=== PATIENT | female | born 1990 | race Caucasian/White ===

== ENCOUNTER → 2018-05-09 13:16 | Outpatient (CLI) | payer SELFPAY ==
[2018-05-09 15:04] LABS: Glucose Challenge Gest 1H 50g 81 mg/dL (70-140)
[2018-05-09 21:28] LABS: Chlamydia Trachomatis by PCR Negative (Negative); Neisserai gonorrhoeae by PCR Negative (Negative); Probe Check PASS; Sample Adequacy Control PASS; Specimen Processing Control PASS
== END ==
PROVIDERS: Visit Provider Obstetrics & Gynecology
DX: Z34.90 Encounter for supervision of normal pregnancy, unspecified, unspecified trimester (principal)
CPT/HCPCS: 36415; 82950; 87086; 87491; 87591

== ENCOUNTER → 2018-06-06 11:31 | Outpatient (CLI) | payer SELFPAY ==
[2018-06-06 12:32] LABS: Absolute Lymphocyte Count 2.22 X10^3/ul (0.83-4.51); Absolute Neutrophil Count 4.6 X10^3/uL (2.0-7.7); Basophil# 0.01 X10^3/uL; Basophil% 0.1 % (0-1); Eosinophil# 0.11 X10^3/uL; Eosinophils% 1.5 % (0-5); Hematocrit 39.6 % (37-47); Hemoglobin 13.3 g/dl (12.0-15.0); Lymphocyte # 2.22 X10^3/ul (4.0); Lymphocyte % 30.4 % (19-41); Mean Corp Hgb Conc 33.6 g/gl (32-36); Mean Corpuscular Volume 92.3 fL (81-99); Mean Platelet Vol. 10.6 fl (6.2-12.0); Monocyte# 0.39 X10^3/uL; Monocyte% 5.3 % (0-10); Neutrophil # 4.57 X10^3/uL (2.7-7.7); Neutrophil % 62.7 % (47-70); Platelet Count 232 K/mm3 (150-450); RBC Distribution Width CV 12.7 % (11.6-14.6); RBC Distribution Width SD 42.9 fl (35.1-43.9); Red Blood Count 4.29 M/mm3 (4.2-5.4); White Blood Count 7.3 K/mm3 (4.4-11.0)
[2018-06-06 12:35] LABS: POSITIVE COUNT NO; POSITIVE DIFFERENTIAL NO; POSITIVE MORPHOLOGY NO
[2018-06-06 13:33] LABS: HIV - WCH Non-Reactive (Nonreactive); Rubella IgG 8.5 IU/mL
[2018-06-07 09:36] LABS: HEPATITIS B SURFACE AG Negative (Negative)
[2018-06-10 01:16] LABS: Rapid Plasmin Reagin (RPR) NONREACTIVE (NONREACTIVE)
== END ==
PROVIDERS: Obstetrics & Gynecology; Visit Provider Family Medicine Geriatric Medicine
DX: Z34.90 Encounter for supervision of normal pregnancy, unspecified, unspecified trimester (principal)
CPT/HCPCS: 85025; 86592; 86703; 86762; 86850; 86900; 87340

== ENCOUNTER → 2018-07-05 11:05 | Outpatient (CLI) | payer SELFPAY | PROVIDERS: Visit Provider Nurse Practitioner Women's Health | DX: Z36.9 Encounter for antenatal screening, unspecified (principal) | CPT/HCPCS: 36415 ==

== ENCOUNTER → 2018-10-12 11:24 | Outpatient (CLI) | payer SELFPAY ==
[2018-10-12 11:19] VITALS: BMI 45.7
[2018-10-12 12:10] LABS: Glucose Challenge Gest 1H 50g 129 mg/dL (70-140)
[2018-10-12 12:12] LABS: Absolute Lymphocyte Count 1.96 X10^3/ul (0.83-4.51); Absolute Neutrophil Count 5.1 X10^3/uL (2.0-7.7); Basophil# 0.02 X10^3/uL; Basophil% 0.3 % (0-1); Eosinophil# 0.04 X10^3/uL; Eosinophils% 0.5 % (0-5); Hematocrit 36.4 % (37-47); Hemoglobin 12.4 g/dl (12.0-15.0); Lymphocyte # 1.96 X10^3/ul (4.0); Lymphocyte % 26.2 % (19-41); Mean Corp Hgb Conc 34.1 g/gl (32-36); Mean Corpuscular Hgb 31.9 pg (27.0-32.0); Mean Corpuscular Volume 93.6 fL (81-99); Mean Platelet Vol. 10.4 fl (6.2-12.0); Monocyte# 0.32 X10^3/uL; Monocyte% 4.3 % (0-10); Neutrophil # 5.13 X10^3/uL (2.7-7.7); Neutrophil % 68.4 % (47-70); Platelet Count 215 K/mm3 (150-450); RBC Distribution Width CV 12.5 % (11.6-14.6); RBC Distribution Width SD 41.9 fl (35.1-43.9); Red Blood Count 3.89 M/mm3 (4.2-5.4); White Blood Count 7.5 K/mm3 (4.4-11.0)
[2018-10-12 12:16] LABS: POSITIVE COUNT NO; POSITIVE DIFFERENTIAL NO; POSITIVE MORPHOLOGY NO
== END ==
PROVIDERS: Referring Provider Obstetrics & Gynecology; Visit Provider Obstetrics & Gynecology
DX: O09.90 Supervision of high risk pregnancy, unspecified, unspecified trimester (principal); Z3A.00 Weeks of gestation of pregnancy not specified
CPT/HCPCS: 36415; 82950; 85025

== ENCOUNTER → 2018-11-09 12:26 | Outpatient (CLI) | payer SELFPAY ==
[2018-10-26 11:16] VITALS: BMI 47.4
[2018-11-09 10:44] VITALS: BMI 47.7
--- NOTE | 2018-11-09 12:28 | US_ITS ---
STUDY: SECOND AND THIRD TRIMESTER OBSTETRICAL ULTRASOUND - LIMITED REASON FOR EXAM: Female, 28 years old. Routine survey. LMP: March 25, 2018. PRIOR ULTRASOUND: None. TECHNIQUE: Transabdominal TECHNICAL QUALITY: Adequate. FINDINGS: There is a single intrauterine fetus. The fetus is in a cephalic presentation. There is demonstrated cardiac activity with a heart rate of 129 bpm. There is a normal amniotic fluid volume. The largest amniotic fluid pocket measures 5.1 cm x 5.6 cm. The amniotic fluid index (IKER) is 16.7 cm. The placenta is anterior in location and is not low lying. There are Grade 1 placental changes. The cervix measures 5.6 cm in length. BIOMETRY: BPD: 8.27 cm: 33 weeks, 2 days HC: 31.09 cm: 34 weeks, 6 days AC: 29.5 cm: 33 weeks, 4 days FL: 6.26 cm: 32 weeks, 3 days Age by LMP: 32 weeks, 5 days. JOSHUA by LMP: December 30, 2018. age by current US: 33 weeks, 4 days. JOSHUA by current US: December 24, 2018. Estimated weight: 2170 grams, +/- 317 grams, 60 percentile. Gender: Indeterminant US/OB Limited With Biometrics IMPRESSION: Single live uterine gestation with a mean gestational age of 33 weeks and 4 days. Electronically Signed: Ronni Kendrick, at 12:58 EST , Service support ,
== END ==
PROVIDERS: Referring Provider Obstetrics & Gynecology; Visit Provider Obstetrics & Gynecology
DX: O09.90 Supervision of high risk pregnancy, unspecified, unspecified trimester (principal); Z3A.00 Weeks of gestation of pregnancy not specified
CPT/HCPCS: 76816

== ENCOUNTER → 2018-12-07 12:22 | Outpatient (CLI) | payer SELFPAY ==
[2018-10-26 11:16] VITALS: BMI 47.4
[2018-12-07 10:32] VITALS: BMI 47.7
--- NOTE | 2018-12-07 12:28 | US_ITS ---
STUDY: SECOND AND THIRD TRIMESTER OBSTETRICAL ULTRASOUND - LIMITED REASON FOR EXAM: Female, 28 years old. Routine survey. LMP: March 25, 2018. PRIOR ULTRASOUND: Comparison is made with prior study dated November 09, 2018. TECHNIQUE: Transabdominal TECHNICAL QUALITY: Adequate. FINDINGS: There is a single intrauterine fetus. The fetus is in a breech presentation. There is demonstrated cardiac activity with a heart rate of 135 bpm. There is a normal amniotic fluid volume. The largest amniotic fluid pocket measures 6.2 cm. The amniotic fluid index (IKER) is 15.5 cm. The placenta is anterior in location and is not low lying. There are Grade 2 placental changes. The cervix measures 3.5 cm in length. BIOMETRY: BPD: 9.5 cm: 38 weeks, 6 days HC: 33.64 cm: 38 weeks, 4 days AC: 33.59 cm: 37 weeks, 4 days FL: 7.05 cm: 36 weeks, 1 days Age by LMP: 37 weeks, 5 days. JOSHUA by LMP: December 30, 2018. age by prior US: 37 weeks, 4 days. JOSHUA by prior US: December 24, 2018. age by current US: 37 weeks, 6 days. JOSHUA by current US: December 22, 2018. Estimated weight: 3209 grams, +/- 469 grams, 74 percentile. Gender: Indeterminant US/OB Limited With Biometrics IMPRESSION: Single live intrauterine gestation with a mean gestational age of 37 weeks and 4 days. The measurements obtained today fall within the normal expected range. Electronically Signed: Ronni Kendrick, at 8:56 EDT , Service support ,
== END ==
PROVIDERS: Referring Provider Obstetrics & Gynecology; Visit Provider Obstetrics & Gynecology
DX: Z34.93 Encounter for supervision of normal pregnancy, unspecified, third trimester (principal)
CPT/HCPCS: 76816; 87081

== ENCOUNTER 2018-12-16 07:05 | Outpatient (CLI) | payer SELFPAY ==
[2018-12-07 10:32] VITALS: BMI 47.7
--- NOTE | 2018-12-16 07:31 | OB.TRI.NOTE ---
- Problem List (1) Breech presentation Status: Acute (2) Rubella non-immune status, antepartum Status: Acute Comment: avoidance and vaccination (3) History of delivery Status: Acute Comment: desires TOLAC (4) BMI greater than 40 Status: Acute Comment: 1 tm glucola nsts and growth us after 32 weeks, Serial growth US every 4 weeks after 32. (5) Supervision of high-risk Status: Acute Qualifiers: Comment: PRR JOSHUA 12/30/17 gender surprise PC Viktoriya Luis (6) Status: Acute Qualifiers: Comment: genetic screening declined, declined carrier and afp screening. Anatomy US right choroid plexus cyst. FU Anatomy US normal. History of Present Illness Date of Service: 12/16/18 Was patient seen by the physician?: Yes Reason For Visit: VERSION Final JOSHUA Source: US <20 weeks History of Present Illness: patient presents at 37 weeks breech presentation desires version. she dneies any vb lof admits good fm and denies any regular ctx Allergies amoxicillin Allergy (Verified 12/07/18 10:32) Unknown - Pertinent Past Medical History Surgical History: Past Surgical History (Last Reviewed 12/07/18 @ 10:32 by Ashley Restrepo) delivery delivered Review of Systems Constitutional: Denies: Fever, Malaise Gastrointestinal: Denies: Abdominal Pain, Diarrhea, Nausea, Vomiting Physical Exam General: Alert, Cooperative, No apparent distress HEENT: Atraumatic, Normocephalic. Negative for: Thyromegaly, Lymphadenopathy Cardiovascular: Regular rate Lungs: Normal air movement Abdomen: Soft, Non Tender, Gravid Neurological: Deep Tendon Reflexes 2+/4 and Symmetrical, Neuro grossly intact. Negative for: Clonus DINING MANAGER: Normal external genitalia. Negative for: Vulvar lesions Estimated gestational size: Appropriate for gestational size Presentation: Breech NST - FHR Rate Baby A Baseline: 130 Variability:: Moderate Accelerations:: 15 x 15 Decelerations:: None NST Reactive:: Yes FHR Category:: Category I Uterine Activity:: no regular Impression/Plan 28 yo with breech presentation presents for ECV plan IV, NST, terb and attempt for ECV.
--- NOTE | 2018-12-16 07:33 | PCM.OPRPT ---
Problem List (1) Breech presentation Status: Acute (2) Rubella non-immune status, antepartum Status: Acute Comment: avoidance and vaccination (3) History of delivery Status: Acute Comment: desires TOLAC (4) BMI greater than 40 Status: Acute Comment: 1 tm glucola nsts and growth us after 32 weeks, Serial growth US every 4 weeks after 32. (5) Supervision of high-risk Status: Acute Qualifiers: Comment: PRR JOSHUA 12/30/17 gender surprise PC Viktoriya Luis (6) Status: Acute Qualifiers: Comment: genetic screening declined, declined carrier and afp screening. Anatomy US right choroid plexus cyst. FU Anatomy US normal. Report of Operation Date of Procedure: 12/16/18 Pre-Operative Diagnosis: breech Surgery/Procedure Performed:: external cephalic version
[2018-12-16] MEDS: Terbutaline 1 MG/ML Vial 0.25 MG SC (07:49)
[2018-12-16] MEDS: Lactated Ringers 1,000 ML 125 ML IV (07:52)
[2018-12-16 08:22] VITALS: BMI 48.5
== END 2018-12-16 09:25 | disposition home or self-care (01) ==
LOC: WPOUT 07:10 → WP 07:10
PROVIDERS: Referring Provider Obstetrics & Gynecology; Visit Provider Obstetrics & Gynecology
DX: O32.1XX0 Maternal care for breech presentation, not applicable or unspecified (principal); O34.219 Maternal care for unspecified type scar from previous cesarean delivery; Z3A.37 37 weeks gestation of pregnancy
CPT/HCPCS: 36415; 59025; 59050; 76815; 96372; 99218; J7120; G0378

== ENCOUNTER 2019-01-05 05:30 | Inpatient (IN) | payer SELFPAY ==
[2019-01-03 10:27] VITALS: BMI 48.5
[2019-01-05] VITALS (15 sets, daily range): BP systolic 98–137; BP diastolic 32–79; PULSE 66–105; RESP 14–18; TEMP 36.4–37.2; O2SAT 94–98; BMI 49.7
[2019-01-05] MEDS: Lactated Ringers 1,000 ML 999 ML IV (05:50)
[2019-01-05 06:26] LABS: Absolute Lymphocyte Count 2.76 X10^3/ul (0.83-4.51); Absolute Neutrophil Count 5.6 X10^3/uL (2.0-7.7); Basophil# 0.02 X10^3/uL; Basophil% 0.2 % (0-1); Eosinophil# 0.07 X10^3/uL; Eosinophils% 0.8 % (0-5); Hematocrit 37.9 % (37-47); Lymphocyte # 2.76 X10^3/ul (4.0); Lymphocyte % 30.5 % (19-41); Mean Corp Hgb Conc 34.3 g/gl (32-36); Mean Corpuscular Hgb 31.3 pg (27.0-32.0); Mean Corpuscular Volume 91.1 fL (81-99); Mean Platelet Vol. 11.1 fl (6.2-12.0); Monocyte# 0.61 X10^3/uL; Monocyte% 6.7 % (0-10); Neutrophil # 5.55 X10^3/uL (2.7-7.7); Neutrophil % 61.5 % (47-70); Platelet Count 215 K/mm3 (150-450); RBC Distribution Width CV 13.3 % (11.6-14.6); RBC Distribution Width SD 44.1 fl (35.1-43.9); Red Blood Count 4.16 M/mm3 (4.2-5.4)
[2019-01-05 06:27] LABS: POSITIVE COUNT NO; POSITIVE DIFFERENTIAL NO; POSITIVE MORPHOLOGY NO
[2019-01-05] MEDS: Sodium Citrate/Citric Acid 30 ML UDC PO ×2 (07:11→13:41)
[2019-01-05] MEDS: Lactated Ringers 1,000 ML 150 ML IV ×2 (07:11→23:44)
--- NOTE | 2019-01-05 08:17 | PCM.HPOB.BLA ---
- Problem List (1) BMI greater than 40 Status: Acute Comment: 1 tm glucola nsts and growth us after 32 weeks, Serial growth US every 4 weeks after 32. (2) History of delivery Status: Acute Comment: desires TOLAC 53% success (3) Status: Acute Qualifiers: Comment: genetic screening declined, declined carrier and afp screening. Anatomy US right choroid plexus cyst. FU Anatomy US normal. (4) Rubella non-immune status, antepartum Status: Acute Comment: avoidance and vaccination (5) Supervision of high-risk Status: Acute Qualifiers: Comment: PRR JOSHUA 12/30/17 gender surprise PC Vikotriya Alexi History and Physical Date of Admission: 01/05/19 Intake Vital Signs 01/03/19 Body Mass Index (BMI) 48.5 01/03/19 Height 5 ft 5 in 01/03/19 Weight: 297 lb 01/03/19 Body Mass Index (BMI) 49.4 01/03/19 Blood Pressure 120/74 12/28/18 Body Mass Index (BMI) 48.5 Intake Visit Reasons: 40 WEEK OB/NST Chief Complaint: est ob/nst Site Safety Coordinator Required: No Is patient in pain?: No Allergies amoxicillin Allergy (Verified 01/03/19 10:27) Unknown Medications Vits [Prenatabs FA] 1 tab PO DAILY 10/13/16 [History Confirmed 01/03/19] Last Menstral Period: 03/13/18 Zika: Zika virus screening: Negative : No PFSH PFSH Surgical History delivery delivered (Acute) Social History Smoking Status: Former smoker alcohol intake: never substance use type: does not use caffeine: Yes what type of physical activity do you participate in: walking seatbelt use: always do you feel safe at home: Yes additional social history: 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 Date Name GA/Weeks Outcome Route Bth Weight Infant Gen Labor Lgth Anesthesia Del Locatn Provider FOB Unknown 2016 Viktoriya 41 live - full term 7 pounds 1 oz Female [facility] Delivery Date: On 05/09/18 @ 12:27 Anna Mendenhall 41 week IOL NRFHTS HPI 40 WEEK OB/NST: Details: NOLAN GONZALEZ is a 29 year old who presents for routine OB visit. OB Visit JOSHUA Calculator Estimated Delivery Date 12/30/18 Based on Ultrasound Date 05/09/18 Current WG 40w 4d Number 1 Expected Delivery Route/Plan desires TOLAC uptodate education given, 54.5% likelihood of success. consent signed Specific Issue/Plans flu vaccine: declines tdap vaccine: given rhogam: na LARC form signed: declines labor support person: Alexi pain management: epidural cut cord/dad catch: yes : yes PP control planned: discussed possible routes of delivery and associated risks: plan TOLAC signed consent special requests: [] Initial Weight: 265 lb Date EGA Weight BP Urine Prot Glucose FHR FuHt Pres Mov CTX Dilation Effaced St Visit Note 05/09/18 6w 3d 266 lb (+16 oz) 06/06/18 10w 3d 266 lb 8 oz (+1 lb 8 oz) 114/70 Negative Negative 155 no vb, had some crmaping but better now 07/05/18 14w 4d 272 lb (+7 lb) 120/72 155 Doing well. No VB, LOF 07/29/18 18w 0d 275 lb (+10 lb) 100/70 Negative Negative 151 Absent Doing well. No VB, LOF. Has felt couple of flutters 08/25/18 21w 6d 281 lb 8 oz (+16 lb 8 oz) 122/82 Negative Negative 150 Active no vb lof cramping 09/22/18 25w 6d 282 lb (+17 lb) 130/78 Negative Negative 150 Active no vb lof good fm no regular ctx 10/12/18 28w 5d 284 lb 2 oz (+19 lb 2 oz) 124/70 Negative Negative 150 30 Active no vb lof good fm no regular ctx. discussed weight gain and activity, support given. 10/26/18 30w 5d 285 lb (+20 lb) 108/72 Negative Negative 150 33 Active absent no vb lof good fm no regular ctx 11/09/18 32w 5d 287 lb (+22 lb) 116/60 Negative Negative 150 34 Active absent no vb lof good fm no regular ctx 11/16/18 33w 5d 288 lb 4 oz (+23 lb 4 oz) 118/58 Negative Negative 150 36 Active absent no vb lof good fm no regular ctx 11/23/18 34w 5d 290 lb (+25 lb) 120/62 Negative Negative 140 Active absent no vb lof good fm nor egualr ctx 11/29/18 35w 4d 292 lb 6 oz (+27 lb 6 oz) 102/68 Negative Negative 130 absent no vb lof good fm n oregular ctx 12/07/18 36w 5d 293 lb 6 oz (+28 lb 6 oz) 120/72 Negative Negative 145 38 Active absent 0 No VB, LOF, CTX. Good FM. NST 12/21/18 38w 5d 296 lb (+31 lb) 130/74 130 40 Active absent 0.5 no vb lof good fm n oregular ctx discussed cs at 41 weeks if no active labor prior 12/28/18 39w 5d 297 lb 6 oz (+32 lb 6 oz) 122/80 Negative Negative 130 41 Active absent 0.5 no vb lof good fm no regular ctx 01/03/19 40w 4d 297 lb (+32 lb) 120/74 Negative Negative 130 41 Cephalic Active absent no vb lof good fm n oregular ctx Visit Notes Visit Date: 01/03/19 ??no vb lof good fm n oregular ctx ??Anna Mendenhall MD on 01/03/19 Visit Date: 12/28/18 ??no vb lof good fm no regular ctx ??Anna Mendenhall MD on 01/03/19 Visit Date: 12/21/18 ??no vb lof good fm n oregular ctx discussed cs at 41 weeks if no active labor prior ??Anna Mendenhall MD on 12/23/18 Visit Date: 12/07/18 ??No VB, LOF, CTX. Good FM. NST ??RUPALI Garnica on 12/07/18 Visit Date: 11/29/18 ??no vb lof good fm n oregular ctx ??Anna Mendenhall MD on 11/29/18 Visit Date: 11/23/18 ??no vb lof good fm nor egualr ctx ??Anna Mendenhall MD on 11/23/18 Visit Date: 11/16/18 ??no vb lof good fm no regular ctx ??Anna Mendenhall MD on 11/20/18 Visit Date: 11/09/18 ??no vb lof good fm no regular ctx ??Anna Mendenhall MD on 11/09/18 Visit Date: 10/26/18 ??no vb lof good fm no regular ctx ??Anna Mendenhall MD on 10/26/18 Visit Date: 10/12/18 ??no vb lof good fm no regular ctx. discussed weight gain and activity, support given. ??Anna Mendenhall MD on 10/12/18 Visit Date: 09/22/18 ??no vb lof good fm no regular ctx ??Anna Mendenhall MD on 09/22/18 Visit Date: 08/25/18 ??no vb lof cramping ??Anna Mendenhall MD on 08/25/18 Visit Date: 07/29/18 ??Doing well. No VB, LOF. Has felt couple of flutters ??Michelle Buckner NP-C on 07/29/18 Visit Date: 07/05/18 ??Doing well. No VB, LOF ??ALEX GarnicaC on 07/05/18 Visit Date: 06/06/18 ??no vb, had some crmaping but better now ??Anan Mendenhall MD on 06/06/18 Visit Date: 05/09/18 ??No visit notes to display ACOG First Trimester First Trimester: Desire for , Alcohol, Tobacco Cessation, Illicit/Recreational Drug/Substance Use, Intimate Partner Violence, Barriers to care, Unstable Housing, Communication Barriers, Environmental/Work Hazards, Anticipated Course of Care, Toxoplasmosis Precations, Use of Any medications, Sexual activity, Exercise, Dental Care, Sauna/Hot tub use, Seat Belt use, Childbirth classes/Hospital facilities, , Travel, Indications for US and Screening for Aneuploidy Diagnostics Diagnostics Labs Hct 36.4 % (37-47) L 10/12/18 Hgb 12.4 g/dl (12.0-15.0) 10/12/18 Obstetrics Ultrasound 12/07/18 Glucose 1 Hr 50 gm 129 mg/dL (70-140) 10/12/18 Details: HIV: Urine Culture: Sequential Screen: NIPT Screen: Office Procedures OB NST Non-Stress Test Indications for Monitoring: Yes BMI >40 Heart Rate Baseline: 130 Heart Rate Variability: moderate Movement: Present Heart Rate Accelerations: Present Decelerations: Absent Contractions: Absent Impression: Yes Reactive Non-Stress Test Category 1 Results [id number] Office Urine Glucose Negative Last Edit by Ashley Restrepo on 01/03/19 10:34 Office Urine Protein Negative Last Edit by Ashley Restrepo on 01/03/19 10:34 Assessment & Plan Problems 1. Rubella non-immune status, antepartum O99.89; Z28.3 2. History of delivery Z98.891 3. BMI greater than 40 4. Supervision of high risk in third trimester O09.93 5. 40 weeks gestation of Z3A.40 Plan movement and labor precautions reviewed. ACOG trimester education reviewed and updated. see problem list details for updated plan management information and see below for orders placed at this visit. GA appropriate handout given. Orders Orders: POC Urinalysis 2 Dip (Clinic) Today OB NST Today Z68.42 Coding Level of Care Code OB Routine Diagnoses Rubella non-immune status, antepartum O99.89; Z28.3 History of delivery Z98.891 BMI greater than 40 Supervision of high risk in third trimester O09.93 ??Trimester: third trimester 40 weeks gestation of Z3A.40 ??Weeks of gestation: 40 weeks Additional Codes Non-Stress Test (90697)
--- NOTE | 2019-01-05 12:39 | NURSING ---
Pt updated on csection time and plans. pt and remain in room resting. no further needs voiced.
[2019-01-05] MEDS: Oxytocin 30 units/NS 500 ml 30 UNITS/500 ML IV.SOLN 167 UNITS IV (14:40)
[2019-01-05] MEDS: Ketorolac 30 MG/ML Syringe IV ×2 (15:02→21:37)
[2019-01-05] MEDS: Lactated Ringers 1,000 ML 100 ML IV ×2 (15:24→17:21)
[2019-01-05] MEDS: Methylergonovine 0.2 MG/ML Ampul IM (15:47)
--- NOTE | 2019-01-05 16:06 | OP.PCM_ITS ---
Problem List (1) BMI greater than 40 Status: Acute Comment: 1 tm glucola nsts and growth us after 32 weeks, Serial growth US every 4 weeks after 32. (2) History of delivery Status: Acute Comment: desires TOLAC 53% success (3) Status: Acute Qualifiers: Comment: genetic screening declined, declined carrier and afp screening. Anatomy US right choroid plexus cyst. FU Anatomy US normal. (4) Rubella non-immune status, antepartum Status: Acute Comment: avoidance and vaccination (5) Supervision of high-risk Status: Acute Qualifiers: Comment: PRR JOSHUA 12/30/17 gender surprise PC Viktoriya Luis Delivery Classification: Scheduled Final JOSHUA: 12/30/18 Gestational age: 40 Weeks and 6 Days Indications for : Repeat Elective Description of Procedure: The patient is a 29-year-old G2, P1 at 40 weeks 6 days presented for repeat C- section. Spinal anesthesia was placed without difficulty. Nayak catheter was placed. The patient was placed in the dorsal supine position with leftward tilt. Patient was prepped and draped in the normal sterile fashion. Pfannenstiel skin incision was made with the scalpel and carried through to the underlying layer of fascia with the scalpel. Fascia was nicked in the midline and the incision extended laterally. The rectus bellies were dissected off superiorly and inferiorly with out complication both sharply and bluntly. The peritoneum was entered digitally. The incision was stretched and a low transverse uterine incision was made with the scalpel. The infant's head was delivered atraumatically followed by the anterior and posterior shoulders witho ut complication the rest of the delivered. The cord was clamped and cut and the was handed off to awaiting nurse. The placenta was delivered spontaneously immediately following and was noted to be intact and have a three- vessel cord. The uterus was exteriorized cleared of all clots and debris, and the incision was closed in a double layer closure using #1 Monocryl. The uterus was returned to the maternal abdomen and gutters were cleared of all clots and debris. The ovaries and fallopian tubes were noted to be within normal limits. The peritoneum was closed with 3-0 Monocryl in a running fashion. Fascia was closed with 0 PDS in a running fashion. Subcutaneous tissue was copiously irrigated and the skin was closed with 3-0 Monocryl in a subcuticular fashion. Steri-Strips and Mepilex dressing were applied without complication. Patient was taken to recovery in stable condition. Amniotic Membrane Rupture Type: Artificial Amniotic Fluid Description: Clear Placenta Disposition: [facility] Drain: Nayak to straight drain Fluids Replaced: Crystalloid Cord Entanglement: None Esitmated Blood Loss (ml): 800 Gender: Female Delayed cord clamping: Yes Pre-op Antibiotic Given: - - Ancef 3 g Pt instructed on risks of surgery: Bleeding, Anesthesia Risks, Infection Complications: None - Admit VTE Documentation VTE Present on Admission: No VTE Mechan Device Prophylaxis: SCD's
[2019-01-05] MEDS: Ondansetron 4 MG/2 ML Vial IV ×2 (17:18→21:37)
--- NOTE | 2019-01-05 18:25 | NURSING ---
1730 gave bedside report to Iliana Leary RN. informed her of moderate sized clot during early recovery and that methergine IM was given at 1547. also discussed borderline urine output and to monitor closely. 100 cc in catheter at recovery, clear and yellow. aware of the need to empty morales catheter at the end of recovery and document a tele strip in pt chart. tele strip printed by this RN at initial recovery start time showed NSR. no further needs. continue to monitor per RN who received report.
[2019-01-05] MEDS: 0.9% Saline Lock 10 ML Syringe IV (21:37)
[2019-01-05] MEDS: Enoxaparin 40 MG/0.4 ML Syringe SC (22:02)
[2019-01-06] VITALS (15 sets, daily range): BP systolic 98–112; BP diastolic 43–61; PULSE 67–85; RESP 14–18; TEMP 36.6–37; O2SAT 91–100
[2019-01-06] MEDS: Ketorolac 30 MG/ML Syringe IV ×4 (03:10→21:14)
[2019-01-06] MEDS: 0.9% Saline Lock 10 ML Syringe IV ×3 (03:12→21:14)
--- NOTE | 2019-01-06 04:20 | NURSING ---
Pt. called RN to room for machine beeping, RN saw that pt.'s SPO2 was at 89%. Pt. almost asleep when machine went off. Vital signs and respirations within normal limits. Physician called for an order for 2L of oxygen nasal cannula. Oxygen applied to pt. and SPO2 went up to 97-98% and stabilized. Pt. denies history of sleep apnea but states she has been told she snores in her sleep.
[2019-01-06 07:00] LABS: Hematocrit 33.3 % (37-47); Hemoglobin 11.1 g/dl (12.0-15.0); Mean Corp Hgb Conc 33.3 g/gl (32-36); Mean Corpuscular Hgb 31.1 pg (27.0-32.0); Mean Corpuscular Volume 93.3 fL (81-99); Mean Platelet Vol. 11.3 fl (6.2-12.0); Platelet Count 180 K/mm3 (150-450); RBC Distribution Width CV 13.4 % (11.6-14.6); RBC Distribution Width SD 44.2 fl (35.1-43.9); Red Blood Count 3.57 M/mm3 (4.2-5.4); White Blood Count 8.8 K/mm3 (4.4-11.0)
[2019-01-06 07:05] LABS: Scan Indicated on CBC? Y/N NO
--- NOTE | 2019-01-06 08:08 | PCM.PN.OB ---
Subjective: doing well no complaints pain controlled no CP SOB N V ambulating well tolerating po lochia moderate, going well - Physical Exam General: Alert, Oriented x3 Abdomen: Soft, Non-Distended, - - FF below U, dressing dry and intact Vital Signs Temp Pulse Resp BP Pulse Ox 98.3 F 71 16 106/43 L 100 01/06/19 03:38 01/06/19 07:30 01/06/19 07:30 01/06/19 03:38 01/06/19 07:30 Oxygen Flow Rate (L/min) 2 Oxygen Delivery Method Room Air Weight: 299 lb Body Mass Index (BMI) 49.7 Intake and Output for Last 24 Hours 01/04/19 01/05/19 01/06/19 23:59 23:59 23:59 Intake Total 3548.2 / 3548.2 2968 / 2968 Output Total 1100 / 1100 1850 / 1850 Balance 2448.2 / 2448.2 1118 / 1118 Laboratory Tests Past 24 Hrs 01/06/19 06:30 WBC 8.8 RBC 3.57 L Hgb 11.1 L Hct 33.3 L MCV 93.3 MCH 31.1 MCHC 33.3 RDW 13.4 RDW Differential 44.2 H Plt Count 180 MPV 11.3 Medical Necessity - Tobacco Use Smoking Status: Never smoker Assessment/Plan All Active Problems (Last Reviewed 01/03/19 @ 10:27 by Ashley Restrepo) Rubella non-immune status, antepartum (Acute) History of delivery (Acute) BMI greater than 40 (Acute) Supervision of high-risk (Acute) (Acute) Breech presentation (Resolved) s/p LTCS PPD # 1 1. routine post care 2. breast feeding- support given 3. rh positive 4. rubella nonimmune
[2019-01-06] MEDS: Lactated Ringers 1,000 ML 100 ML IV (08:38)
[2019-01-06] MEDS: Enoxaparin 40 MG/0.4 ML Syringe SC ×2 (09:24→22:53)
[2019-01-06] MEDS: Acetaminophen 500 MG Tablet 1000 MG PO (20:40)
[2019-01-06] MEDS: Senna/Docusate Sodium 1 Tablet PO (20:40)
[2019-01-07 02:51] VITALS: BP 104/54; PULSE 78; RESP 16; TEMP 36.7; O2SAT 95
[2019-01-07] MEDS: Ketorolac 30 MG/ML Syringe IV ×2 (02:52→10:07)
[2019-01-07] MEDS: 0.9% Saline Lock 10 ML Syringe IV (02:52)
[2019-01-07] MEDS: Acetaminophen 500 MG Tablet 1000 MG PO (06:24)
[2019-01-07 08:00] VITALS: BP 118/72; PULSE 75; RESP 16; TEMP 37.1; O2SAT 97
--- NOTE | 2019-01-07 09:33 | PCM.PN.OB ---
Subjective: doing well no complaints pain controlled no CP SOB N V ambulating well tolerating po lochia moderate, going well - Physical Exam General: Alert, Oriented x3 Abdomen: Soft, Non-Distended, - - FF below u. Dressing dry and intact Vital Signs Temp Pulse Resp BP Pulse Ox 98.7 F 75 16 118/72 97 01/07/19 08:00 01/07/19 08:00 01/07/19 08:00 01/07/19 08:00 01/07/19 08:00 Oxygen Flow Rate (L/min) 2 Oxygen Delivery Method Room Air Weight: 299 lb Body Mass Index (BMI) 49.7 Intake and Output for Last 24 Hours 01/05/19 01/06/19 01/07/19 23:59 23:59 23:59 Intake Total 3548.2 / 3548.2 2968 / 2968 Output Total 1100 / 1100 6250 / 6250 Balance 2448.2 / 2448.2 -3282 / -3282 Medical Necessity - Tobacco Use Smoking Status: Never smoker Assessment/Plan All Active Problems (Last Reviewed 01/03/19 @ 10:27 by Ashley Restrepo) Rubella non-immune status, antepartum (Acute) History of delivery (Acute) BMI greater than 40 (Acute) Supervision of high-risk (Acute) (Acute) Breech presentation (Resolved) s/p LTCS PPD # 2 1. routine post care 2. breast feeding- support given 3. rh positive 4. rubella nonimmune 5. plan home today
--- NOTE | 2019-01-07 09:35 | PCM.DCCSEC ---
Additional Instructions: If you experience any of the following, contact your healthcare provider. Bleeding that soaks a pad every hour for 2 hours Fever 100.4 or higher Unrelieved incision or abdominal pain Swelling, redness, discharge or bleeding from your incision or episiotomy site Your incision begins to separate Problems urinating (including inability to urinate or burning while urinating). Visual changes Severe headache Flu-like symptoms Pain or redness in one of both of your breasts Pain, warmth, tenderness or swelling in your legs, especially the calf area Frequent nausea and vomiting Symptoms of depression or anxiety If you experience any of the following, call 911 or go to the nearest Emergency Room. Chest pain Problems breathing Seizure activity Partial or complete paralysis of a body part, slurred speech, weakness or drooping of the face, or a sudden inability to walk or hold your balance Allergies/Adverse Reactions: Allergies amoxicillin Allergy (Verified 01/05/19 06:16) Rash Medications to take at Discharge Vits [Prenatabs FA] 1 tab PO DAILY 10/13/16 Naproxen [Naprosyn] 250 - 500 mg PO Q8H PRN PRN #30 tablet 01/06/19 Oxycodone HCl/Acetaminophen [Percocet 5-325] 1 - 2 tablet PO Q4H PRN PRN 7 Days #28 tablet 01/06/19 The following prescriptions were given: Oxycodone HCl/Acetaminophen [Percocet 5-325] 1 - 2 tablet PO Q4H PRN PRN 7 Days #28 tablet PRN Reason: Moderate-Severe pain Naproxen [Naprosyn] 250 - 500 mg PO Q8H PRN PRN #30 tablet PRN Reason: MILD PAIN Follow-Up: Call to make an appointment with your doctor for an incision check in 1-2 weeks. You will also need a 6 week post- follow up appointment. Test results from this visit will be discussed in further detail at your follow-up appointment, if applicable. Primary Care Physician: Care Physician,No Primary [Primary Care Provider] -
--- NOTE | 2019-01-07 09:36 | DCINST_ITS ---
Additional Instructions: If you experience any of the following, contact your healthcare provider. * Bleeding that soaks a pad every hour for 2 hours * Fever 100.4 or higher * Unrelieved incision or abdominal pain * Swelling, redness, discharge or bleeding from your incision or episiotomy site * Your incision begins to separate * Problems urinating (including inability to urinate or burning while urinating). * Visual changes * Severe headache * Flu-like symptoms * Pain or redness in one of both of your breasts * Pain, warmth, tenderness or swelling in your legs, especially the calf area * Frequent nausea and vomiting * Symptoms of depression or anxiety If you experience any of the following, call 911 or go to the nearest Emergency Room. * Chest pain * Problems breathing * Seizure activity * Partial or complete paralysis of a body part, slurred speech, weakness or drooping of the face, or a sudden inability to walk or hold your balance Allergies/Adverse Reactions: Allergies amoxicillin Allergy (Verified 01/05/19 06:16) Rash Medications to take at Discharge Vits [Prenatabs FA] 1 tab PO DAILY 10/13/16 Naproxen [Naprosyn] 250 - 500 mg PO Q8H PRN PRN #30 tablet 01/06/19 Oxycodone HCl/Acetaminophen [Percocet 5-325] 1 - 2 tablet PO Q4H PRN PRN 7 Days #28 tablet 01/06/19 The following prescriptions were given: Oxycodone HCl/Acetaminophen [Percocet 5-325] 1 - 2 tablet PO Q4H PRN PRN 7 Days #28 tablet PRN Reason: Moderate-Severe pain Naproxen [Naprosyn] 250 - 500 mg PO Q8H PRN PRN #30 tablet PRN Reason: MILD PAIN Follow-Up: Call to make an appointment with your doctor for an incision check in 1-2 weeks. You will also need a 6 week post- follow up appointment. Test results from this visit will be discussed in further detail at your follow- up appointment, if applicable. Primary Care Physician: Care Physician,No Primary [Primary Care Provider] -
[2019-01-07] MEDS: Enoxaparin 40 MG/0.4 ML Syringe SC (10:07)
[2019-01-07] MEDS: oxyCODONE 5 MG Tablet PO (13:56)
[2019-01-07 14:05] VITALS: BP 108/66; PULSE 76; RESP 16; TEMP 36.9
== END 2019-01-07 14:05 | disposition home or self-care (01) | DRG 788 ==
PROVIDERS: Admitting Provider Obstetrics & Gynecology; Visit Provider Obstetrics & Gynecology
PROC: 10D00Z1 Extraction of Products of Conception, Low, Open Approach (ICD-10-PCS; CPT 59514; principal; 2019-01-05 11:45)
DX: O34.211 Maternal care for low transverse scar from previous cesarean delivery (principal); Z87.891 Personal history of nicotine dependence; Z3A.40 40 weeks gestation of pregnancy; Z37.0 Single live birth
CPT/HCPCS: 59025; 59050; 85025; 85027; 86850; 86900; 99218; J7120; A4216; G0378; J2405

== ENCOUNTER → 2019-02-24 13:48 | Outpatient (CLI) | payer SELFPAY ==
[2019-02-24 11:35] VITALS: BMI 49.7
[2019-03-01 11:32] LABS: HPV Reflexed? NOT INDICATED
== END ==
PROVIDERS: Referring Provider Obstetrics & Gynecology; Visit Provider Obstetrics & Gynecology
DX: Z39.2 Encounter for routine postpartum follow-up (principal)
CPT/HCPCS: 87624; 88175; G0145

== ENCOUNTER → 2023-02-25 | Outpatient (CLI) | payer SELFPAY ==
[2023-03-01 06:07] LABS: Chlamydia By Nucleic Acid AMP Negative (Negative); Gonococcus By Nucleic Acid AMP Negative (Negative)
[2023-03-03 12:09] LABS: HPV APTIMA, High Risk Negative (Negative)
== END | disposition home or self-care (01) ==
LOC: LABSPEC 15:16
PROVIDERS: Referring Provider Obstetrics & Gynecology; Visit Provider Obstetrics & Gynecology
DX: Z34.90 Encounter for supervision of normal pregnancy, unspecified, unspecified trimester (principal); Z3A.00 Weeks of gestation of pregnancy not specified
CPT/HCPCS: 87086; 87491; 87591; 87624; 88175; G0145

== ENCOUNTER → 2023-03-26 | Outpatient (CLI) | payer SELFPAY ==
[2023-03-26 17:14] LABS: Absolute Lymphocyte Count 2.13 X10^3/uL (0.83-4.51); Absolute Neutrophil Count 6.1 X10^3/uL (2.0-7.7); Basophil# 0.03 X10^3/uL; Basophil% 0.3 % (0-1); Eosinophil# 0.05 X10^3/uL; Eosinophils% 0.6 % (0-5); Hematocrit 37.1 % (37-47); Hemoglobin 12.7 g/dL (12.0-15.0); Lymphocyte # 2.13 X10^3/ul (0.83-4.51); Lymphocyte % 24.5 % (19-41); Mean Corp Hgb Conc 34.2 g/dL (32-36); Mean Corpuscular Hgb 31.7 pg (27.0-32.0); Mean Corpuscular Volume 92.5 fL (81-99); Mean Platelet Vol. 10.7 fl (6.2-12.0); Monocyte# 0.42 X10^3/uL; Monocyte% 4.8 % (0-10); NRBC Flagged by Analyzer 0 % (0-5); Neutrophil # 6.05 X10^3/uL (2.7-7.7); Neutrophil % 69.6 % (47-70); Platelet Count 254 K/mm3 (150-450); RBC Distribution Width CV 12.7 % (11.6-14.6); RBC Distribution Width SD 43.4 fl (35.1-43.9); Red Blood Count 4.01 M/mm3 (4.2-5.4); White Blood Count 8.7 K/mm3 (4.4-11.0)
[2023-03-26 18:07] LABS: Glucose Challenge Gest 1H 50g 110 mg/dL (70-140)
[2023-03-26 18:57] LABS: HIV - WCH Non-Reactive (Nonreactive); Hepatitis B Surface Antigen Non-Reactive (Nonreactive); Hepatitis C Antibody Non-Reactive (Nonreactive); Rubella IgG Reactive (Nonreactive); Syphilis Antibodies Non-reactive
== END | disposition home or self-care (01) ==
LOC: LAB 15:23
PROVIDERS: PCP Nurse Practitioner Primary Care; Referring Provider Obstetrics & Gynecology; Visit Provider Obstetrics & Gynecology
DX: Z34.90 Encounter for supervision of normal pregnancy, unspecified, unspecified trimester (principal); Z3A.00 Weeks of gestation of pregnancy not specified
CPT/HCPCS: 36415; 82950; 85025; 86703; 86762; 86780; 86803; 86850; 86900; 86901; 87340

== ENCOUNTER → 2023-04-21 | Outpatient (CLI) | payer SELFPAY ==
[2023-04-21 12:30] LABS: T4 Free Direct 0.97 ng/dL (0.76-1.46); Thyroid Stim Hormone (TSH) 2.35 uIU/mL (0.358-3.74)
== END | disposition home or self-care (01) ==
LOC: PAVLAB 11:45
PROVIDERS: PCP Nurse Practitioner Primary Care; Referring Provider Nurse Practitioner Women's Health; Visit Provider Nurse Practitioner Women's Health
DX: O99.280 Endocrine, nutritional and metabolic diseases complicating pregnancy, unspecified trimester (principal); E06.3 Autoimmune thyroiditis
CPT/HCPCS: 36415; 84439; 84443

== ENCOUNTER → 2023-05-20 | Outpatient (CLI) | payer SELFPAY ==
--- NOTE | 2023-05-20 13:17 | US_ITS ---
STUDY: SECOND AND THIRD TRIMESTER OBSTETRICAL ULTRASOUND - LIMITED REASON FOR EXAM: Female, 33 years old OB Anatomy with cervical length COMPARISON: None TECHNIQUE: Transabdominal and transvaginal sonographic images of the pelvis. FINDINGS: There is a single intrauterine . The fetus is in the breech presentation. The heart rate measures 143 BPM. Amniotic fluid volume appears grossly normal with the maximum vertical pocket measuring 5.0 cm. The placenta is anterior with no evidence of placenta previa. There is a placental west near the cord insertion. The cervix measures 3.4 cm in length. The internal os of the cervix is closed. anatomy including lateral ventricles, choroid plexus, cerebellum, cisterna magna, face/nose/lips, four-chamber heart, diaphragm, stomach, cord insertion, three-vessel cord, kidneys, bladder, spine and upper and lower extremities are unremarkable. BIOMETRY: BPD: 4.6 cm: 20 weeks, 0 days HC: 17.4 cm: 19 weeks, 6 days AC: 14.6 cm: 19 weeks, 6 days FL: 3.1 cm: 19 weeks, 5 days age by today''s US: 19 weeks, 6 days and JOSHUA of 10/08/2023. Estimated weight: 317 grams corresponding to the 37th percentile. US/OB Anatomy w/ Transvaginal IMPRESSION: 1. Single live intrauterine in the breech presentation with an anterior placenta. 2. Cervical length of 3.4 cm. 3. Visualized anatomy is unremarkable. Electronically Signed: Bob Bear DO at 1:14 EDT ,
== END | disposition home or self-care (01) ==
PROVIDERS: PCP Nurse Practitioner Primary Care; Referring Provider Obstetrics & Gynecology; Visit Provider Obstetrics & Gynecology
DX: O09.90 Supervision of high risk pregnancy, unspecified, unspecified trimester (principal); Z3A.00 Weeks of gestation of pregnancy not specified
CPT/HCPCS: 76805; 76817

== ENCOUNTER → 2023-07-12 | Outpatient (CLI) | payer SELFPAY ==
[2023-07-12 09:13] LABS: Absolute Lymphocyte Count 2.02 X10^3/uL (0.83-4.51); Absolute Neutrophil Count 6.8 X10^3/uL (2.0-7.7); Basophil# 0.03 X10^3/uL; Basophil% 0.3 % (0-1); Eosinophil# 0.08 X10^3/uL; Eosinophils% 0.8 % (0-5); Hematocrit 38.1 % (37-47); Hemoglobin 12.7 g/dL (12.0-15.0); Lymphocyte # 2.02 X10^3/ul (0.83-4.51); Lymphocyte % 21.4 % (19-41); Mean Corp Hgb Conc 33.3 g/dL (32-36); Mean Corpuscular Hgb 31.6 pg (27.0-32.0); Mean Corpuscular Volume 94.8 fL (81-99); Mean Platelet Vol. 10.4 fl (6.2-12.0); Monocyte# 0.44 X10^3/uL; Monocyte% 4.7 % (0-10); NRBC Flagged by Analyzer 0 % (0-5); Neutrophil # 6.82 X10^3/uL (2.7-7.7); Neutrophil % 72.1 % (47-70); Platelet Count 219 K/mm3 (150-450); RBC Distribution Width CV 12.7 % (11.6-14.6); RBC Distribution Width SD 43.9 fl (35.1-43.9); Red Blood Count 4.02 M/mm3 (4.2-5.4); White Blood Count 9.5 K/mm3 (4.4-11.0)
[2023-07-12 09:51] LABS: Glucose Challenge Gest 1H 50g 88 mg/dL (70-140); T4 Free Direct 0.96 ng/dL (0.76-1.46); Thyroid Stim Hormone (TSH) 1.21 uIU/mL (0.358-3.74)
[2023-07-12 10:42] LABS: HIV - WCH Non-Reactive (Nonreactive); Syphilis Antibodies Non-reactive
== END | disposition home or self-care (01) ==
LOC: PAVLAB 08:56
PROVIDERS: PCP Nurse Practitioner Primary Care; Referring Provider Obstetrics & Gynecology; Visit Provider Obstetrics & Gynecology
DX: O99.280 Endocrine, nutritional and metabolic diseases complicating pregnancy, unspecified trimester (principal); E06.3 Autoimmune thyroiditis; Z3A.00 Weeks of gestation of pregnancy not specified
CPT/HCPCS: 36415; 82950; 84439; 84443; 85025; 86703; 86780

== ENCOUNTER → 2023-08-12 | Outpatient (CLI) | payer SELFPAY ==
--- NOTE | 2023-08-12 08:02 | US_ITS ---
INDICATION: Obesity in EXAMINATION: US OB Limited 1 Or More Fetus TECHNIQUE: Transabdominal pelvic obstetric ultrasound was performed. COMPARISON: Obstetric ultrasound from 05/20/2023 FINDINGS: Single live intrauterine fetus in cephalic presentation with heart rate of 141 bpm. Grade 0 anterior placenta with no abruption or placenta previa. Closed cervix measures 4.4 cm in length. Amniotic fluid index 21.7 cm. Maternal adnexa not imaged. Estimated gestational age of 32 weeks 6 days based on biometrics with JOSHUA of 10/01/2023. age by ultrasound 31 weeks 6 days. Clinical age of 32 weeks 0 days with LMP of 12/31/2022 and JOSHUA 10/07/2023. Estimated weight 2067 g (4 lbs. 9 oz.), 67th percentile. anatomic survey not performed. BIOMETRIC MEASUREMENTS: BIPARIETAL DIAMETER: 8.11 cm which corresponds to 32 weeks 4 days. HEAD CIRCUMFERENCE: 29.96 cm which corresponds to 33 weeks 1 day. ABDOMINAL CIRCUMFERENCE: 29.10 cm which corresponds to 33 weeks 1 day. FEMORAL LENGTH: 6.22 cm which corresponds to 32 weeks 2 days. US/OB Limited With Biometrics IMPRESSION: Single live intrauterine of 32 weeks 6 days by today''s ultrasound. Clinical age of 32 weeks 0 days. No acute abnormality. Electronically Signed: Williams Haley MD at 0:48 EST ,
== END | disposition home or self-care (01) ==
LOC: OPUS 08:01
PROVIDERS: PCP Nurse Practitioner Primary Care; Referring Provider Obstetrics & Gynecology; Visit Provider Obstetrics & Gynecology
DX: O99.210 Obesity complicating pregnancy, unspecified trimester (principal); Z3A.00 Weeks of gestation of pregnancy not specified
CPT/HCPCS: 76816

== ENCOUNTER → 2023-08-31 | Outpatient (CLI) | payer SELFPAY ==
--- NOTE | 2023-08-31 11:21 | US_ITS ---
STUDY: OBSTETRICAL ULTRASOUND - BIOPHYSICAL PROFILE REASON FOR EXAM: Female, 33 years old BPP for obesity LMP: December 31, 2022. PRIOR ULTRASOUND: Comparison is made with prior study of August 12, 2023 TECHNIQUE: Transabdominal TECHNICAL QUALITY: Adequate. FINDINGS: There is a single intrauterine fetus. The fetus is in a cephalic presentation. There is demonstrated cardiac activity with a heart rate of 130 bpm. There is a normal amniotic fluid volume. The largest amniotic fluid pocket measures 6.1 cm. The amniotic fluid index (IKER) is 17.5 cm. The placenta is fundal in location. There are Grade 1 placental changes. Age by LMP: 34 weeks, 5 days. JOSHUA by LMP: October 07, 2023. BIOPHYSICAL PROFILE: Breathing Movements (FBM): 2 Gross Body Movements (GBM): 2 Tone (FT): 2 Amniotic Fluid Volume (AFV): 2 TOTAL SCORE: US/Biophysical Prof W/O Non Stres IMPRESSION: Normal biophysical profile of 04/20. Electronically Signed: Ronni Kendrick MD at 13:29 EST ,
== END | disposition home or self-care (01) ==
LOC: US 11:19
PROVIDERS: PCP Nurse Practitioner Primary Care; Referring Provider Nurse Practitioner Women's Health; Visit Provider Nurse Practitioner Women's Health
DX: O99.210 Obesity complicating pregnancy, unspecified trimester (principal); Z3A.00 Weeks of gestation of pregnancy not specified
CPT/HCPCS: 76819

== ENCOUNTER → 2023-09-09 | Outpatient (CLI) | payer SELFPAY ==
--- NOTE | 2023-09-09 07:59 | US_ITS ---
EXAM: US BIOPHYSICAL PROFILE WITHOUT NON-STRESS TESTING CLINICAL INDICATION: BPP for obesity affecting TECHNIQUE: Real-time ultrasound of the maternal pelvis for biophysical profile evaluation with image documentation. COMPARISON: No relevant prior studies available. FINDINGS: BREATHING MOVEMENTS: Present. Score 2/2. GROSS BODY MOVEMENTS: Present. Score 2/2. TONE: Present. Score 2/2. QUALITATIVE AMNIOTIC FLUID VOLUME: IKER is 17.5 cm. FETUS: There is an intrauterine gestation. HEART RATE: heart rate is 130 bpm. PRESENTATION: The fetus in breech position. PLACENTA: Placenta is anterior. OTHER FINDINGS: Biophysical profile score is 8/8. US/Biophysical Prof W/O Non Stres IMPRESSION: Biophysical profile score 8/8. Electronically Signed: Paul Triplett MD at 0:06 EST ,
--- NOTE | 2023-09-09 07:59 | US_ITS ---
EXAM: US , LIMITED CLINICAL INDICATION: Obesity affecting TECHNIQUE: Real-time limited ultrasound of the maternal uterus with image documentation. COMPARISON: Biophysical profile on the same date. FINDINGS: GESTATIONAL AGE: Estimated gestational age: 36 weeks, 3 days compared to 36 weeks, 0 days by dates. JOSHUA: 10/04/2023. EFW: Estimated weight: 2882 g (57%). BPD: 8.73 cm. HC: 32.58 cm. AC: 32.58 cm. FL: 6.99 cm. POSITION: Breech presentation. Anatomic evaluation of the fetus is limited due to positioning and gestational age. HEART RATE: heart rate is 150 bpm. PLACENTA: Anterior placenta. AMNIOTIC FLUID: Amniotic fluid volume is 15.6 cm. ADNEXA: The maternal ovaries are not visualized. US/OB Limited With Biometrics IMPRESSION: Viable IUP. No acute findings. See details above. Electronically Signed: Ken Jacob DO at 17:05 EST ,
--- OUTSIDE RECORDS SUMMARY | 2023-09-09 08:00 | XMS RPT_ITS | CCD ---
Author Name Unknown Address [address] [place] [address] Organization [facility] Care Team Providers Care Set Up Mechanic Coil Winding Machines Name Role Phone ANGELINA HUANG (CEREAL MAKER) Unavailable Unavailable ZEB FULLER Unavailable Unavailable ZEB FULLER Unavailable Unavailable SHIVA ALBERTO Unavailable Unavailable MARCELLO SMITH Unavailable Unavailabl e NO PRIMARY CARE, Unavailable Unavailable FLIP PRESLEY Unavailable Unavailable MARCELLO SMITH Unavailable Unavailabl e NO PRIMARY CARE, Unavailable Unavailable JASPAL RIZO Primary Care Physicia n Allergies Allergy Classification Reported Allergen(s) Allergy Type Date of Onset Reaction(s) Facility (2 sources) amoxicillin; Translations: [AMOXICILLIN] Drug Allergy 12-04-2010 Shana BELTRE [facility] Repository Medications Current Medications Medication Drug Class(es) Dates Sig (Normalized) Sig (Original) AD oral tablet (1 source) Start: 04-08-2019 take 1 tablet by mouth once daily AD oral tablet Dose = 1 tab(s), Oral, Daily, # 30 tab(s), 0 Refill(s) Start Date: 04/08/19 Status: Ordered thyroid (custodial) 30 mg oral tablet (1 source) Start: 07-14-2019 TECHNOLOGY INFUSION SPECIALIST Thyroid 30 mg oral tablet Dose : 30 mg = 1 tab(s), Oral, qDay, 0 Refill(s) Start Date: 07/14/19 Status: Ordered Problems Problem Classification Problem Date Documented Date Episodic/Chronic Acute bronchitis (1 source) Viral bronchitis 07-14-2019 Episodic Attention-deficit, conduct, and disruptive behavior disorders (1 source) Attention deficit hyperactivity disorder, 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 Menstrual disorders (1 source) Irregular menstruation, unspecified; Translations: [Irregular menstruation, unspecified] Onset: 01-11-2018 Chronic Unclassified (2 sources) Encounter for screening for other suspected endocrine disorder; Translations: [Encounter for screening for other suspected endocrine disorder] Onset: 01-06-2018 Episodic Results Test Name Value Interpretation Reference Range Facil ity Encounters Encounter Date Encounter Type Care Provider Facility Start: 01-02-2022 End: 01-02-2022 Patient encounter procedure RA WOLF DO [facility] Start: 08-15-2018 Patient encounter procedure FLIP Martines SAKINA [facility] Start: 08-01-2018 Patient encounter procedure SHIVA Miladis ALBERTO [facility] Start: 01-11-2018 End: 01-11-2018 Ambulatory ANGELINA (CEREAL MAKER) SAL [facility] Start: 01-06-2018 End: 01-11-2018 Ambulatory ZEB FULLER Facility:[facility] Procedures Date Procedure Procedure Detail Performing Clinician Start: 10-14-2016 section HAILEY WOLF DO Payers Date Payer Category Payer Self-pay Social History Date Type Detail Facility Start: 07-14-2019 Tobacco smoking status Never s moked tobacco (finding) [facility] Sex Assigned At Female [facility] Evaluation + Plan note Note Date & Type Note Facility Evaluation + Plan note No data available for this section [facility] Hospital Discharge instructions Note Date & Type Note Facility Hospital Discharge instructions No data available for this section [facility] Progress note Note Date & Type Note Facility Progress note No data available for this section [facility] Summary Purpose Family History No Family History Records FoundNo Family History Records FoundNo Family History Records FoundNo Family History Records Found Advance Directives No Advanced Directives Records FoundNo Advanced Directives Records FoundNo Advanced Directives Records FoundNo Advanced Directives Records Found Additional Source Comments INFORMATION SOURCE (unrecogn ized section and content) DATE CREATED AUTHOR AUTHOR'S ORGANIZ ATION 03/03/2018 [facility] ([place]) DATE CREATED AUTHOR AUTHOR'S ORGANIZ ATION 08/22/2018 [facility] DATE CREATED AUTHOR AUTHOR'S ORGANIZ ATION 01/04/2022 [facility] ([place]) Care Team (unrecognized sect ion and content) Personnel Name: JASPAL HERRERA APRN-[facility] Address: [address] [place] [address]- US FOR RECORDS PERTAINING TO PATIENTS WHO ARE OR HAVE BEEN ENROLLED IN A CHEMICAL DEPENDENCY/SUBSTANCEABUSE PROGRAM, SOME INFORMATION MAY BE OMITTED. This clinical summary was aggregated from multiple sources. Caution should be exercised in using it in the provision of clinical care. This summary normalizes information from multiple sources, and as a consequence, information in this document may materially change the coding, format and clinical context of patient data. In addition, data may be omitted in some cases. CLINICAL DECISIONS SHOULD BE BASED ON THE PRIMARY CLINICAL RECORDS. [facility] [facility]. provides no warranty or guarantee of the accuracy or completeness of information in this document.
== END | disposition home or self-care (01) ==
PROVIDERS: PCP Nurse Practitioner Primary Care; Referring Provider Obstetrics & Gynecology; Visit Provider Obstetrics & Gynecology
DX: O99.210 Obesity complicating pregnancy, unspecified trimester (principal); Z3A.00 Weeks of gestation of pregnancy not specified
CPT/HCPCS: 76816; 76819; 87077; 87081; 87186

== ENCOUNTER → 2023-09-17 | Outpatient (CLI) | payer SELFPAY ==
--- NOTE | 2023-09-17 08:03 | US_ITS ---
STUDY: OBSTETRICAL ULTRASOUND - BIOPHYSICAL PROFILE REASON FOR EXAM: Female, 33 years old BPP for obesity affecting LMP: 12/31/2022 PRIOR ULTRASOUND: 09/09/2023 TECHNIQUE: Transabdominal TECHNICAL QUALITY: Adequate. FINDINGS: There is a single intrauterine fetus. The fetus is in a cephalic presentation. There is demonstrated cardiac activity with a heart rate of 130 bpm. There is a normal amniotic fluid volume. The largest amniotic fluid pocket measures 5.61 cm. The amniotic fluid index (IKER) is 19.2 cm. The placenta is anterior in location and is not low lying. There are Grade 2 placental changes. Age by LMP: 37 weeks, 1 days. JOSHUA by LMP: 10/07/2023. BIOPHYSICAL PROFILE: Breathing Movements (FBM): 2 Gross Body Movements (GBM): 2 Tone (FT): 2 Amniotic Fluid Volume (AFV): 2 TOTAL SCORE: US/Biophysical Prof W/O Non Stres IMPRESSION: Normal biophysical profile of 04/20. Electronically Signed: Josue Self MD at 8:55 EST ,
== END | disposition home or self-care (01) ==
LOC: OPUS 08:01
PROVIDERS: PCP Nurse Practitioner Primary Care; Referring Provider Obstetrics & Gynecology; Visit Provider Obstetrics & Gynecology
DX: O99.210 Obesity complicating pregnancy, unspecified trimester (principal); Z3A.00 Weeks of gestation of pregnancy not specified
CPT/HCPCS: 76819

== ENCOUNTER → 2023-09-24 | Outpatient (CLI) | payer SELFPAY ==
--- NOTE | 2023-09-24 12:33 | US_ITS ---
STUDY: OBSTETRICAL ULTRASOUND - BIOPHYSICAL PROFILE REASON FOR EXAM: Female, 33 years old BPP for obesity affecting LMP: December 31, 2022. PRIOR ULTRASOUND: Comparison is made with prior study dated September 17, 2023. TECHNIQUE: Transabdominal TECHNICAL QUALITY: Adequate. FINDINGS: There is a single intrauterine fetus. The fetus is in a cephalic presentation. There is demonstrated cardiac activity with a heart rate of 134 bpm. There is a normal amniotic fluid volume. The largest amniotic fluid pocket measures 7.2 cm. The amniotic fluid index (IKER) is 19.7 cm. The placenta is anterior in location and is not low lying. There are Grade 0 placental changes. Age by LMP: 38 weeks, 1 days. JOSHUA by LMP: October 07, 2023 age by prior US: 38 weeks, 4 days. JOSHUA by prior US: October 04, 2023 BIOPHYSICAL PROFILE: Breathing Movements (FBM): 2 Gross Body Movements (GBM): 2 Tone (FT): 2 Amniotic Fluid Volume (AFV): 2 TOTAL SCORE: 8 / 8 US/Biophysical Prof W/O Non Stres IMPRESSION: Normal biophysical profile of 8/8. Electronically Signed: Ronni Kendrick MD at 13:31 EST ,
--- OUTSIDE RECORDS SUMMARY | 2023-09-24 12:52 | XMS RPT_ITS | CCD ---
Author Name Unknown Address [address] [place] [address] Organization [facility] Care Team Providers Care Integrity Engineer Name Role Phone ANGELINA HUANG (GEOMETRY TEACHER) Unavailable Unavailable ZEB FULLER Unavailable Unavailable ZEB [...] Translations: [AMOXICILLIN] Drug Allergy 12-04-2010 Shana BELTRE [facility] Repository Medications Current Medications Medication Drug Class(es) Dates Sig (Normalized) Sig (Original) AD oral tablet (1 source) Start: 04-08-2019 take 1 tablet by mouth once daily AD oral tablet Dose = 1 tab(s), Oral, Daily, # 30 tab(s), 0 Refill(s) Start Date: 04/08/19 Status: Ordered thyroid (skilled nursing) 30 mg oral tablet (1 source) Start: 07-14-2019 WILDLIFE REFUGE MANAGER Thyroid 30 mg oral tablet Dose : [...] 01-02-2022 Patient encounter procedure RA WOLF DO [facility] Start: 08-15-2018 Patient encounter procedure FLIP Martines SAKINA [facility] Start: 08-01-2018 Patient encounter procedure SHIVA Miladis ALBERTO [facility] Start: 01-11-2018 End: 01-11-2018 Ambulatory ANGELINA (GEOMETRY TEACHER) SAL [facility] Start: 01-06-2018 End: 01-11-2018 Ambulatory ZEB FULLER Facility:[facility] Procedures Date Procedure Procedure Detail Performing Clinician Start: 10-14-2016 section HAILEY WOLF DO Payers Date Payer Category Payer Self-pay Social History Date Type Detail Facility Start: 07-14-2019 Tobacco smoking status Never s moked tobacco (finding) [facility] Sex Assigned At Female [facility] Evaluation + Plan note Note Date & Type Note Facility Evaluation + Plan note No data available for this section [facility] Hospital Discharge instructions Note Date & Type Note Facility Hospital Discharge instructions No data available for this section [facility] Progress note Note Date & Type Note Facility Progress note No data available for this section [facility] Summary Purpose Family History No Family History Records FoundNo Family History Records FoundNo Family History Records FoundNo Family History Records Found Advance Directives No Advanced Directives Records FoundNo Advanced Directives Records FoundNo Advanced Directives Records FoundNo Advanced Directives Records Found Additional Source Comments INFORMATION SOURCE (unrecogn ized section and content) DATE CREATED AUTHOR AUTHOR'S ORGANIZ ATION 03/03/2018 [facility] ([place]) DATE CREATED AUTHOR AUTHOR'S ORGANIZ ATION 08/22/2018 [facility] DATE CREATED AUTHOR AUTHOR'S ORGANIZ ATION 01/04/2022 [facility] ([place]) Care Team (unrecognized sect ion and content) Personnel Name: JASPAL HERRERA APRN-[facility] Address: [address] [place] [address]- US FOR RECORDS PERTAINING TO PATIENTS WHO [...] BE BASED ON THE PRIMARY CLINICAL RECORDS. [facility] [employer] [facility]. provides no warranty or guarantee of the accuracy or completeness of information in this document.
== END | disposition home or self-care (01) ==
PROVIDERS: PCP Nurse Practitioner Primary Care; Referring Provider Obstetrics & Gynecology; Visit Provider Obstetrics & Gynecology
DX: O99.210 Obesity complicating pregnancy, unspecified trimester (principal); Z3A.00 Weeks of gestation of pregnancy not specified
CPT/HCPCS: 76819

== ENCOUNTER 2023-09-30 05:10 | Inpatient (IN) | payer SELFPAY ==
[2023-09-30] VITALS (17 sets, daily range): BP systolic 96–139; BP diastolic 48–91; PULSE 62–95; RESP 0–18; TEMP 36.3–36.9; O2SAT 95–98; BMI 51.7
--- NOTE | 2023-09-30 05:33 | NURSING ---
father of baby is recovering acholic.
[2023-09-30] MEDS: Acetaminophen 500 MG Tablet 1000 MG PO ×3 (06:07→18:40)
[2023-09-30] MEDS: Lactated Ringers 1,000 ML 999 ML IV (06:08)
[2023-09-30 06:09] LABS: Absolute Lymphocyte Count 2.01 X10^3/uL (0.83-4.51); Absolute Neutrophil Count 6.3 X10^3/uL (2.0-7.7); Basophil# 0.03 X10^3/uL; Basophil% 0.3 % (0-1); Eosinophil# 0.06 X10^3/uL; Eosinophils% 0.7 % (0-5); Hematocrit 38.2 % (37-47); Lymphocyte # 2.01 X10^3/ul (0.83-4.51); Lymphocyte % 22.2 % (19-41); Mean Corpuscular Volume 91.2 fL (81-99); Mean Platelet Vol. 11.1 fl (6.2-12.0); Monocyte# 0.61 X10^3/uL; Monocyte% 6.7 % (0-10); NRBC Flagged by Analyzer 0 % (0-5); Neutrophil % 69.7 % (47-70); Platelet Count 208 K/mm3 (150-450); RBC Distribution Width SD 41.9 fl (35.1-43.9); Red Blood Count 4.19 M/mm3 (4.2-5.4); White Blood Count 9.1 K/mm3 (4.4-11.0)
[2023-09-30] MEDS: Lactated Ringers 1,000 ML 150 ML IV (06:41)
[2023-09-30] MEDS: Sodium Citrate/Citric Acid 30 ML UDC PO (06:41)
--- NOTE | 2023-09-30 07:09 | HP.PCM_ITS ---
History and Physical Date of Admission: 09/30/23 Vital Signs 06/14/2310:17 08/23/2309:09 08/31/2309:58 09/17/2407:57 09/24/2407:59 09/24/2407:59 Height 5 ft 5.5 in 5 ft 5.5 in 5 ft 5.5 in 5 ft 5.5 in 5 ft 5.5 in 5 ft 5.5 in Weight: 316 lb BMI 51.7 BP 124/84 H Blood Pressure Location Lt brachial Position Sitting Intake Visit Reasons: 38 WK OB *SM c/sec Allergies amoxicillin Allergy (Verified 09/17/23 08:59) Rash Last Menstrual Period: 12/31/22 PFSH PFSH Medical History Gem's disease Surgical History delivery delivered Family History Aunt Ovarian cancer, Onset Age: 60 Paternal Social History adopted: No household members: spouse and children number of children: 2 current occupational status: employed current occupation: self employed current occupational exposures/hazards: No pets and animals: Yes pets and animals: dog(s) history of recent travel: No sexually active: Yes Smoking Status: Never smoker alcohol intake: never substance use type: does not use diet: gluten free and lactose free well-balanced diet: daily or most days caffeine: Yes Type: coffee Number of servings: 1 eating out: rarely or never during the past year weight has: remained stable what type of physical activity do you participate in: walking and weight training frequency: daily duration: 15-30 minutes/day nicko/lutheran: Sabianist seatbelt use: always do you feel safe at home: Yes additional social history: 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 Date Name GA/Weeks Outcome Route Bth Weight Infant Gen Labor Lgth Anesthesia Del Locatn Provider FOB Unknown 2016 Viktoriya 41 live - full term 7 po unds 1 oz Female [facility] 01/05/19 Nathalie 40 live - full term C- section Female spinal [facility] Delivery Date: Last Updated by: Anna Mendenhall MD 41 week IOL NRFHTS HPI 38 WK OB *SM c/sec Details: NOLAN GONZALEZ is a 33 year old who presents for routine OB visit. OB Visit JOSHUA Calculator Estimated Delivery Date Method Current WG Current Estimate 10/07/23 LMP (Uncertain) 38w 1d Other Estimates 10/06/23 Ultrasound #1 38w 2d Expected Delivery Route/Plan plan RLTCS at 39 weeks. Specific Issue/Plans Covid status: discussed Flu vaccine: declines Tdap vaccine: declined Rhogam: NA LARC form signed: yes movement and labor precautions reviewed. Problem list reviewed and updated with the most current plan of care details and appropriate orders placed. Relevant counseling for the gestational age provided. Continue routine care and follow up unless otherwise noted in visit notes/problem list details Initial Weight: Not Recorded Date -?-?-?-?-?-?-?-?-?-?-?-?- EGA Weight BP Urine Prot -?-?-?-?-?-?-?-?-?-?-?-?- Glucose FHR FuHt Pres Dilation -?-?-?-?-?-?-?-?-?-?-?-?- Effaced St Visit Note 02/25/23-?-?-?-?-?-?-?-?-?-?-?-?- 8w 0d 295 lb 6 oz 129/84 -?-?-?-?-?-?-?-?-?-?-?-?- 160 -?-?-?-?-?-?-?-?-?-?-?-?- JV- JV- CRL consistent with 8weeks 1 day and with LMP. Declines NIPT at this time. has gem's and needs TPO and TSH monitored q trimester. had baseline with pcp at 5 weeks. 03/26/23-?-?-?-?-?-?-?-?-?-?-?-?- 12w 1d 296 lb 6 oz 124/78 Negative -?-?-?-?-?-?-?-?-?-?-?-?- Negative 150 -?-?-?-?-?-?-?-?-?-?-?-?- SM- SM- no vb cramping 04/21/23-?-?-?-?-?-?-?-?-?-?-?-?- 15w 6d 297 lb 6 oz 124/80 Negative -?-?-?-?-?-?-?-?-?-?-?-?- Negative 160 -?-?-?-?-?-?-?-?-?-?-?-?- MH-No VB. Br US to confirm FHT. thyroid labs today. Some nausea. 05/21/23-?-?-?-?-?-?-?-?-?-?-?-?- 20w 1d 297 lb 6 oz 134/79 Negative -?-?-?-?-?-?-?-?-?-?-?-?- Negative 155 20 -?-?-?-?-?-?-?-?-?-?-?-?- KW-no vb/cramping. good fm. US yesterday. Having 3rd GIRL!! 06/14/23-?-?-?-?-?-?-?-?-?-?-?-?- 23w 4d 303 lb 8 oz 118/70 Negative -?-?-?-?-?-?-?-?-?-?-?-?- Negative 150 24 -?-?-?-?-?-?-?-?-?-?-?-?- SM- no vb lof good fm nor egular ctx discussed testing 07/12/23-?-?-?-?-?-?-?-?-?-?-?-?- 27w 4d 307 lb 124/80 Negative -?-?-?-?-?-?-?-?-?-?-?-?- Negative 156 29 -?-?-?-?-?-?-?-?-?-?-?-?- MH-No VB, LOF. Good FM. 29 wk labs pending. Larc. 07/29/23-?-?-?-?-?-?-?-?-?-?-?-?- 30w 0d 306 lb 2 oz 138/78 Negative -?-?-?-?-?-?--?-?-?-?-?-?- Negative 140 33 -?-?-?-?-?-?-?-?-?-?-?-?- SM- no vb lof good fm no regular ctx 08/12/23-?-?-?-?-?-?-?-?-?-?-?-?- 32w 0d 181 lb308 lb 122/78 -?-?-?-?-?-?-?-?-?-?-?-?- 130 35 Cephalic -?-?-?-?-?-?-?-?-?-?-?-?- SM- no vb lof good fm n oregular ctx 08/23/23-?-?-?-?-?-?-?-?-?-?-?-?- 33w 4d 308 lb 122/80 Negative -?-?-?-?-?-?-?-?-?-?-?-?- Negative 151 35 -?-?-?-?-?-?-?-?-?-?-?-?- MH-No VB, LOF. Good FM. Start weekly NST next week. Growth US at 36 wk 08/31/23-?-?-?-?-?-?-?-?-?-?-?-?- 34w 5d 308 lb 4 oz 128/74 Negative -?-?-?-?-?-?-?-?-?-?-?-?- Negative 140 -?-?-?-?-?-?-?-?-?-?-?-?- MH-NST only and unable to keep baby on monitor. Deferred NST and will get BPP 09/09/23-?-?-?-?-?-?-?-?-?-?-?-?- 36w 0d 315 lb 122/80 Negative -?-?-?-?-?-?-?-?-?-?-?-?- Negative 147 38 -?-?-?-?-?-?-?-?-?-?-?-?- MH-NO VB, LOF. BPP 04/20 this AM. GBS done. Good FM. MH-NO VB, LOF. BPP 04/20 this AM. GBS done. Good FM. Feeling anxious, tearful. States probably needed med after last . Discussed use, risks of zoloft and wishes to proceed. 09/17/23-?-?-?-?-?-?-?-?-?-?-?-?- 37w 1d 313 lb 6 oz 120/78 Negative -?-?-?-?-?-?-?-?-?-?-?-?- Negative 140 40 Cephalic -?-?-?-?-?-?-?-?-?-?-?-?- SM- no vb lof good fm no regular ctx 09/24/23-?-?-?-?-?-?-?-?-?-?-?-?- 38w 1d 316 lb 124/84 Negative -?-?-?-?-?-?-?-?-?-?-?-?- Negative 140 42 Cephalic -?-?-?-?-?-?-?-?-?-?-?-?- SM- no vb lof good fm n oregular ctx ACOG First Trimester First Trimester: Desire for , Alcohol, Tobacco Cessation, Illicit/Recreational Drug/Substance Use, Intimate Partner Violence, Barriers to care, Unstable Housing, Communication Barriers, Environmental/Work Hazards, Anticipated Course of Care, Toxoplasmosis Precations, Use of Any medications, Sexual activity, Exercise, Dental Care, Sauna/Hot tub use, Seat Belt use, Childbirth classes/Hospital facilities, , Travel, Indications for Ultrasound and Screening for Aneuploidy Second Trimester Second Trimester: Signs and Symptoms of Labor, Reproductive Life P prosper & Contreception and Intimate Partner Violence; Discussed Tobacco Cessation and Discussed Depression/Anxiety Third Trimester Third Trimester: Pain Management Plans, Labor support person(s), Immediate Larc, Signs and Symptoms of Preeclampsia, Feeding Yes and Family Medical Leave or Disability Forms ROS Const Reports system reviewed and no additional complaints, except as documented Card Reports system reviewed and no additional complaints, except as documented Resp Reports system reviewed and no additional complaints, except as documented GI Reports system reviewed and no additional complaints, except as documented and Reports nausea Reports system reviewed and no additional complaints, except as documented Musc Reports system reviewed and no additional complaints, except as documented Exam Const General: cooperative, healthy appearing, comfortable and anxious HENMT Head: normal to inspection Nose: external nose normal Face and sinus: normal facial exam Neck Neck: normal visual inspection, full ROM and no lymphadenopathy Thyroid: thyroid normal Chest Chest palpation & inspection: normal inspection of the chest Resp Effort & Inspection: normal respiratory effort GI Inspection: normal to inspection Palpation: soft and other (gravid uterus) Other: infant vertex and appropriate size for gestational age Other: Cervical Exam: Extrem General: pedal edema Results POC Urinalysis 2 Dip (Clinic) Office Urine Glucose Negative Last Edit by Portia Rodriguez on 09/24/23 09:04 Office Urine Protein Negative Last Edit by Portia Rodriguez on 09/24/23 09:04 Coding Level of Care Code OB Routine Diagnoses GBS (group B Streptococcus carrier), +RV culture, currently O99.820 Anxiety F41.9 Obesity affecting in second trimester, unspecified obesity type O99.212 Obesity type affecting : unspecified obesity Trimester: second trimester Previous section Z98.891 PCOS (polycystic ovarian syndrome) E28.2 Gem's disease E06.3 Supervision of high risk in second trimester O09.92 Trimester: second trimester 38 weeks gestation of Z3A.38 Weeks of gestation: 38 weeks Assessment and Plan Assessment and Plan (1) GBS (group B Streptococcus carrier), +RV culture, currently : Status: Acute Comment: treat in labor (2) Anxiety: Status: Acute Comment: zoloft start (3) Obesity affecting : Status: Acute Qualifiers: Obesity type affecting : unspecified obesity Trimester: second trimester Qualified Code(s): O99.212 - Obesity complicating , second trimester Comment: nl early screen, weekly nsts after 34, growth us 32 and 36; Unable to get NST due to body habitus and will get weekly BPP until c section (4) Previous section: Status: Acute Comment: x 2 plan repeat c section, RLTCS scheduled for 09/30 @ 7:30 with SM (5) PCOS (polycystic ovarian syndrome): Status: Acute Comment: discussed options, continuing metformin per patient request. stopped when GCT testing done and WNL no diabetes. hold metformin around csection time. (6) Gem's disease: Status: Chronic Comment: labs q trimester (7) Supervision of high-risk : Status: Acute Qualifiers: Trimester: second trimester Qualified Code(s): O09.92 - Supervision of high risk , unspecified, second trimester Comment: PRR , JOSHUA 10/07/22 girl PC Nathalie Sadler, Alexi (8) : Status: Acute Qualifiers: Weeks of gestation: 38 weeks Qualified Code(s): Z3A.38 - 38 weeks gest ation of Comment: discussed and declined genetic & Carrier ntd testing, NL Anatomy, Orders: Orders POC Urinalysis 2 Dip (Clinic) Today Z34.90 - Encounter for supervision of normal , unspecified, unspecified trimester plan RLTCS UPDATE- I have seen the patient and performed any clinically relevant updates to the history and physical exam. Anna Mendenhall MD
--- NOTE | 2023-09-30 07:10 | EX.PCM.OBRPT ---
Assessment & Plan (1) GBS (group B Streptococcus carrier), +RV culture, currently : COMMENT: treat in labor (2) Anxiety: COMMENT: zoloft start (3) Obesity affecting : QUALIFIERS: Obesity type affecting : unspecified obesity Trimester: second trimester Qualified Code(s): O99.212 - Obesity complicating , second trimester COMMENT: nl early screen, weekly nsts after 34, growth us 32 and 36; Unable to get NST due to body habitus and will get weekly BPP until c section (4) Previous section: COMMENT: x 2 plan repeat c section, RLTCS scheduled for 09/30 @ 7:30 with SM (5) PCOS (polycystic ovarian syndrome): COMMENT: discussed options, continuing metformin per patient request. stopped when GCT testing done and WNL no diabetes. hold metformin around csection time. 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 Maternal Data Information JOSHUA Calculator Estimated Delivery Date Method Current WG Current Estimate 10/07/23 LMP (Uncertain) 39w 0d Other Estimates 10/06/23 Ultrasound #1 39w 1d Final JOSHUA Source: LMP Details Operative Information Date of Procedure: 09/30/23 Pre-Operative Diagnosis: Previous Post-Operative Diagnosis: same Indications for : Repeat Elective Indications Narrative: Surgeon: Anna Mendenhall MD Classification: Scheduled Procedure Type: low transverse meat counter clerk #1: Cal Mercado Type of Anesthesia: Spinal Special Medications: none Antibiotic Given: Clindamycin 600mg IV x1 and Gentamicin 1.5mg/kg IV x1 Drain: Nayak to straight drain Estimated Blood Loss: 600 Fluids Replaced: crystalloid Procedure Start Time: 07:44 Procedure Stop Time: 08:35 Findings Description of Procedure: Spinal anesthesia was placed without difficulty. Nayak catheter was placed. The patient was placed in the dorsal supine position with leftward tilt. Patient was prepped and draped in the normal sterile fashion. Pfannenstiel skin incision was made with the scalpel and carried through to the underlying layer of fascia with the scalpel. Fascia was nicked in the midline and the incision extended laterally. The rectus bellies were dissected off superiorly and inferiorly with out complication both sharply and bluntly. The peritoneum was entered sharply, increased scarring was seen and tissue planes were ablated, one small omental to anterior abdominal wall adhesion was seen. The incision was stretched and a low transverse uterine incision was made with the scalpel. The 's head was delivered atraumatically followed by the anterior and posterior shoulders without complication the rest of the infant delivered. The cord was clamped and cut and the was handed off to awaiting nurse. The placenta was delivered spontaneously immediately following and was noted to be intact and have a three-vessel cord. The uterus was exteriorized cleared of all clots and debris, and the incision was closed in a single layer closure using #1 Monocryl. additional right stitch was placed. The ovaries and fallopian tubes were noted to be within normal limits. The uterus was returned to the maternal abdomen and gutters were cleared of all clots and debris. The peritoneum was closed with 3-0 Monocryl in a running fashion. Gloves were changed prior to fascial closure. Fascia was closed with 0 PDS in a running fashion. Subcutaneous tissue was copiously irrigate, katlyn placed, and the skin was closed with 3-0 Monocryl in a subcuticular fashion. Mepilex dressing was applied without complication. Patient was taken to recovery in stable condition. It was discussed with the patient that based on the clinical information obtained during this encounter, combined with her history, at this time I would recommend cesareans for future deliveries if further pregnancies are desired. Amniotic Membrane Rupture Type: Artificial Amniotic Fluid Description: Clear Placenta Disposition: [facility] Cord Vessel Description: 3 Vessels Delayed Cord Clamping: Yes Complications Risks of Surgery Discussed w/Patient: Bleeding, Infection, Need for Future C-Sections and Injury to surrounding structure(s) including bowel and bladder Vaginal Delivery Complication Complications: None Admit VTE Documentation VTE Present on Admission: No VTE Mechan Device Prophylaxis: SCD's Procedures Urinary/Genital [id number]: [id number] [facility]
--- NOTE | 2023-09-30 07:15 | PCM.DC ---
Discharge Instructions Diet Discharge Diet: No restrictions Activity Discharge Activity: May Not Drive (for 2 weeks or while taking narcotic pain medications.), May Shower and May Take a Tub Bath (in 7 days) May shower in (days): 0 May resume sexual activity in: 4-6 weeks Weight Bearing Status: Full weight bearing Lifting Restrictions: 20 pounds Dressing / Incision Call your doctor if your incision/area has: Continuous Slow Oozing, Sudden Increased Bleeding, Increased Pain/ Swelling, Increased Redness and Foul Smelling Discharge Call your doctor if you observe: Fever of 101 or Higher and Using more than 1 pad per hour (for 2 hours) Suture Line Care: Avoid Pulling/Pushing and Avoid Pinching/Bending Cleanse incision/area with: Soap & Water and Keep Dressing Clean & Dry Follow Up Care Please Follow Up With: Anna Mendenhall MD When: Call [phone] to make an appointment for an incision check in 1-2 weeks. Test Results: Test results from this visit will be discussed in further detail at your follow-up appointment, if applicable. Discharge Plan Admission Admit Date/Time: 09/30/23 05:10 Attending Provider: Anna Mendenhall Primary Care Provider: Sadie Hinds DISPUTE RESOLUTION SPECIALIST Discharge Orders/Prescriptions Prescriptions: New oxycodone-acetaminophen [Percocet] 5-325 mg tablet 1 tab PO Q6H PRN (Reason: pain) 7 Days Qty: 10 0RF naproxen [naproxen] 500 mg tablet 500 mg PO BID PRN PRN (Reason: Pain) Qty: 30 1RF Continued levothyroxine 25 mcg tablet 50 mcg PO DAILY omega-3 fatty acids 1,000 mg capsule 2,000 mg PO DAILY inositol 500 mg tablet 900 mg PO metformin 500 mg tablet extended release 24 hr 500 mg PO BID cholecalciferol (vitamin D3) 25 mcg (1,000 unit) capsule 25 mcg PO DAILY bran 5 gram wafer PO Super Probiotic 20 billion cell capsule PO magnesium mal, threon, chelate 200 mg magnesium/scoop powder PO levothyroxine 125 mcg tablet 125 mcg PO DAILY Qty: 90 3RF sertraline [Zoloft] 50 mg tablet 50 mg PO DAILY Qty: 30 4RF vit,[id number] 1 TABLET tablet 1 tab PO DAILY Referrals / Follow Up: Sadie Hinds DISPUTE RESOLUTION SPECIALIST, DISPUTE RESOLUTION SPECIALIST-C [Primary Care Provider] -
[2023-09-30] MEDS: Gentamicin IV 290 MG in Dextrose 5%-Water (50mL Bag) 50 ML 100 MG IVPB (07:17)
[2023-09-30] MEDS: Clindamycin 900 MG/50 ML BAG 75 MG IV (07:36)
[2023-09-30] MEDS: Oxytocin 15 Units/NS 250ml 15 UNITS/250 ML IV.SOLN 83 UNITS IV (08:50)
[2023-09-30 09:04] LABS: Syphilis Antibodies Non-reactive
[2023-09-30] MEDS: Ketorolac 30 MG/ML Syringe IV ×3 (09:47→22:03)
[2023-09-30] MEDS: oxyCODONE 5 MG Tablet PO ×3 (11:39→20:41)
[2023-09-30] MEDS: Lactated Ringers 1,000 ML 100 ML IV (12:21)
[2023-09-30] MEDS: Sertraline 50 MG Tablet PO (22:03)
[2023-09-30] MEDS: Enoxaparin 40 MG/0.4 ML Syringe SC (22:03)
[2023-09-30] MEDS: 0.9% Saline Lock 10 ML Syringe IV (22:03)
--- NOTE | 2023-10-01 00:26 | NURSING ---
This RN assumed care of patient and at 2139 from Amy JUAREZ
[2023-10-01] MEDS: oxyCODONE 5 MG Tablet PO ×5 (00:56→20:56)
[2023-10-01] MEDS: Acetaminophen 500 MG Tablet 1000 MG PO ×4 (00:56→18:07)
[2023-10-01 03:21] VITALS: BP 131/79; PULSE 91; RESP 18; TEMP 36.4; O2SAT 96
[2023-10-01] MEDS: Ketorolac 30 MG/ML Syringe IV (03:22)
[2023-10-01] MEDS: 0.9% Saline Lock 10 ML Syringe IV (03:23)
[2023-10-01 05:29] LABS: Hematocrit 30.1 % (37-47); Hemoglobin 9.7 g/dL (12.0-15.0); Mean Corp Hgb Conc 32.2 g/dL (32-36); Mean Corpuscular Hgb 30.4 pg (27.0-32.0); Mean Corpuscular Volume 94.4 fL (81-99); Mean Platelet Vol. 10.9 fl (6.2-12.0); Platelet Count 197 K/mm3 (150-450); RBC Distribution Width CV 12.8 % (11.6-14.6); RBC Distribution Width SD 44.3 fl (35.1-43.9); Red Blood Count 3.19 M/mm3 (4.2-5.4); White Blood Count 9.3 K/mm3 (4.4-11.0)
[2023-10-01] MEDS: Levothyroxine 125 MCG Tablet PO (06:39)
--- NOTE | 2023-10-01 08:33 | PN.OBGYN_ITS ---
Subjective Subjective Patient doing well without complaints. Tolerating PO. Ambulating and voiding without difficulty. feeding well. Denies chest pain, shortness of breath, calf pain/swelling, fevers, chills, lightheadedness. Objective Data Objective Data Vital Signs: Vital Signs Temp Pulse Resp BP Pulse Ox O2 Del Method 97.5 F L 91 18 131/79 H 96 Room Air 10/01/23 03:21 10/01/23 03:21 10/01/23 03:21 10/01/23 03:21 10/01/23 03:21 10/01/23 03:21 Oxygen Delivery Method Room Air Weight: 315 lb 12.8 oz Body Mass Index (BMI) 51.7 Intake & Output: Intake and Output for Last 24 Hours 09/29/23 09/30/23 10/01/23 23:59 23:59 23:59 Intake Total 2532.25 / 2532.25 Output Total 3190 / 3190 900 / 900 Balance -657.75 / -657.75 -900 / -900 Lab / Micro Data 10/01/23 10:15 Labs: Laboratory Results - last 24 hr 09/30/23 06:00: Syphilis Total Ab Non-reactive 10/01/23 05:05: WBC 9.3, RBC 3.19 L, Hgb 9.7 L, Hct 30.1 L, MCV 94.4, MCH 30.4, MCHC 32.2 D, RDW Std Deviation 44.3 H, RDW Coeff of Marissa 12.8, Plt Count 197, MPV 10.9 ROS Constitutional Constitutional: Reports systems reviewed and no addt'l complaints, except as documented Cardiovascular Cardiovascular: Reports systems reviewed and no addt'l complaints, except as documented Respiratory/Chest Respiratory/Chest: Reports systems reviewed and no addt'l complaints, except as documented Gastrointestinal Gastrointestinal: Reports systems reviewed and no addt'l complaints, except as documented Physical Exam Const alert, oriented x3 and no apparent distress HEENT Head and Scalp: atraumatic Resp normal respiratory effort GI soft to palpation and non-tender Inspection: incision intact, healing well and drainage (none) Bimanual Exam - Vag & Uterus: uterus non-tender Uterus Palpation: uterus fundus firm (below Umbilicus) Assessment & Plan (1) delivery delivered: COMMENT: RLTCS 39 girl, third cs (2) Anxiety: COMMENT: zoloft start PLAN: Plan s/p LTCS PPD # 1 1. routine post care 2. breast feeding- support given 3. rh positive 4. rubella immune Capacity Legal Communication Coordinator Reflex Medical hold order details:: IF a medical hold is selected below, a suggested order for a MEDICAL HOLD will reflex upon signing the document. Next of kin: [place] law dictates a PRIORITY LIST for identifying legal decision-maker/legal next of kin in the following order (LNOK): 1st: The patient?s legal guardian, if any 2nd: The patient's spouse (if status is questionable, consult Risk Management) 3rd: The patient?s adult child(avery) (majority, if multiple children) 4th: The patient?s parents 5th: The patient?s adult siblings (majority, if multiple children siblings)
[2023-10-01] MEDS: Enoxaparin 40 MG/0.4 ML Syringe SC ×2 (09:02→20:55)
[2023-10-01 10:08] VITALS: BP 131/75; PULSE 83; RESP 16; TEMP 36.4; O2SAT 98
[2023-10-01] MEDS: Senna/Docusate Sodium 1 Tablet PO (10:11)
[2023-10-01 10:28] LABS: Absolute Lymphocyte Count 1.67 X10^3/uL (0.83-4.51); Absolute Neutrophil Count 6.1 X10^3/uL (2.0-7.7); Basophil# 0.03 X10^3/uL; Basophil% 0.4 % (0-1); Eosinophils% 1.2 % (0-5); Hematocrit 29.1 % (37-47); Hemoglobin 9.7 g/dL (12.0-15.0); Lymphocyte # 1.67 X10^3/ul (0.83-4.51); Lymphocyte % 19.9 % (19-41); Mean Corp Hgb Conc 33.3 g/dL (32-36); Mean Corpuscular Hgb 30.9 pg (27.0-32.0); Mean Corpuscular Volume 92.7 fL (81-99); Mean Platelet Vol. 10.9 fl (6.2-12.0); Monocyte# 0.49 X10^3/uL; Monocyte% 5.8 % (0-10); NRBC Flagged by Analyzer 0 % (0-5); Neutrophil # 6.05 X10^3/uL (2.7-7.7); Neutrophil % 72.1 % (47-70); Platelet Count 206 K/mm3 (150-450); RBC Distribution Width CV 12.9 % (11.6-14.6); RBC Distribution Width SD 43.8 fl (35.1-43.9); Red Blood Count 3.14 M/mm3 (4.2-5.4); White Blood Count 8.4 K/mm3 (4.4-11.0)
[2023-10-01] MEDS: Naproxen 500 MG Tablet PO ×3 (11:03→23:52)
--- NOTE | 2023-10-01 12:58 | CASEMGMT ---
Social Work Assessment Labor and Delivery Unit Patient Address: [address] [place] [address] Phone number: [phone] Date of Referral: 09/30/23 Time of Referral:? 36 Referred By: Anna Mendenhall Date of Intervention: ??10/01/23 Time of Intervention:? 1129 Reason for Referral:? anxoiety and FOB hx of alcohol abuse Sw completed chart review and acknowledges social work consult entered due to maternal history of anxiety and father of baby having history of alcohol abuse. Sw presented to bedside and introduced self to mother of baby (MOB- Barbara) and father of baby (FOB- Luis). Sw explained sw role during hospitalization and completed psychosocial assessment. Sw asked FOB to step out of room momentarily so that MOB could complete and [place] Depression Scale. FOB left room respectfully. History obtained from: medical records, MOB and FOB Household composition: Currently residing in the family home is SUSANNE, FOAndrea their two older daughters (Viktoriya (almost 7) and Nathalie almost 5) and now baby. Parents deny any housing concerns at this time. Patient's parent/guardian status:? ?Parents met through mutual friends and have known each other for a long time. Parents now have three children together. While meeting with MOB privately she denies any concerns of abuse or intimate partner violence. Medical History: ?SUSANNE is 33 year old female who is 3, para 2- now 3 following labor and delivery of . SUSANNE received routine care during with [facility]. 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 SUSANNE delivered baby via scheduled repeat on 09/30/23 at 39 weeks gestation. Baby girl, named Kayla Don, was born weighing 7lb 2oz and her apgars were 9 and 9 at one and five minutes of life respectfully. SUSANNE is breast feeding and open to supplementation with formula if necessary. MOB states that she had issues with supply in the past and as a result had a baby that became failure to thrive. MOB states that she is open to supplementing so that does not happen again. MOB states that baby will be followed by Dr. Gonsalves for pediatrics. Educational Status:? Both parents graduated high school, no concerns with reading, learning or comprehension. Financial Status: PREETI is employed at a local [employer]. 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 Infant Supplies:?? Parents report they have obtained all necessary baby supplies, including: car seat, safe sleep space, clothes, diapers, wipes and a breast pump. Childcare/Caregiver(s):? MOB and FOAndrea will be the primary caregivers to . When they need assistance with childcare MOB's family is able to help them. Maternal grandma is who is babysitting their older two children while they are at the hospital. Transportation:?? Both parents have their drivers license and reliable means of transportation, no barriers at this time. Programs/Agencies Involved: ???No linkage to community resources at this time. Parents have [facility] for insurance coverage. Children Services/Legal Issues:?No history of involvement, no issues or concerns warranting a referral to be made at this time. ?? Behavioral Health Issues: ??Mental Health History:??PREETI denies mental health diagnoses. SUSANNE states that she has been diagnosed with anxiety and depression. SUSANNE states that a few weeks ago she felt anxious and somewhat depressed and not like herself. SUSANNE states that she discussed this concern with her OBGYN and she agreed to start a low dose of zoloft. SUSANNE states that she just wants to be happy. SUSANNE reports that she believes she experienced the baby blues following the births of her other two babies, but those symptoms did not last long and she did not get on medications at that time. SUSANNE completed an [place] Depression scale and her score was a 5. Sw provided education and support, along with literature that provides information regarding appropriate coping skills should SUSANNE struggle during her period. ? Substance Use History: SUSANNE denies substance use prior to or during . PREETI disclosed that he has a history of alcoholism. PREETI states that he went to rehab two years ago where he stayed for over 40 days and has been sober ever since. PREETI states that getting sober has changed his life in a lot of different ways. PREETI states that he has a sponsor and goes to meetings sometimes. ?? Family History: Parents deny family history of addiction or significant mental health history. ? Drug Screens: ??No urine screens observed in chart review. Family/Social Stressors:? Parents deny any stressors or concerns at this time. Support Systems: MOB states that FOAndrea and her mom are her two biggest supports. Depression/Shaken Baby/Safe Sleeping:? Sw educated parents on signs and symptoms of baby blues and depression. Parents expressed understanding. Sw provided MOB with list of resources that are local to her that she can reach out to should she feel as though she is struggling and is open to counseling during this time. MOB expressed understanding. Sw educated parents on shaken baby prevention and ABCs of safe sleep. Parents expressed understanding. ASSESSMENT:? MOB and baby admitted following labor and delivery of . Parents were open to meeting with sw and were engaged and open throughout conversation. Both parents participated in assessment process. Both parents made and kept eye contact and answered questions openly. MOB affect somewhat flat, and open to discussion regarding mental health status and struggles she has been experiencing late in this . Parents appreciative of sw involvment, support and resources provided. MOB observed to provide appropriate and loving hands on care to . PLAN:? MOB and baby to be discharged when medically ready. ?No other services requested or indicated. Jerome Cordova, [employer], [employer] ATTORNEY
[2023-10-01 20:05] VITALS: BP 93/66; PULSE 83; RESP 16; TEMP 36.1; O2SAT 99
[2023-10-01] MEDS: Sertraline 50 MG Tablet PO (20:56)
[2023-10-02] MEDS: Acetaminophen 500 MG Tablet 1000 MG PO ×2 (00:45→07:32)
[2023-10-02 02:10] VITALS: BP 129/53; PULSE 82; RESP 15; TEMP 36.4; O2SAT 97
[2023-10-02] MEDS: Levothyroxine 125 MCG Tablet PO (05:10)
--- NOTE | 2023-10-02 07:15 | PCM.PN.OB ---
Subjective Subjective Patient doing well without complaints. Tolerating PO. Ambulating and voiding without difficulty. feeding well. Denies chest pain, shortness of breath, calf pain/swelling, fevers, chills, lightheadedness. Objective Data Objective Data Vital Signs: Vital Signs Temp Pulse Resp BP Pulse Ox O2 Del Method 97.5 F L 82 15 129/53 H 97 Room Air 10/02/23 02:10 10/02/23 02:10 10/02/23 02:10 10/02/23 02:10 10/02/23 02:10 10/02/23 02:10 Oxygen Delivery Method Room Air Weight: 315 lb 12.8 oz Body Mass Index (BMI) 51.7 Intake & Output: Intake and Output for Last 24 Hours 09/30/23 10/01/23 10/02/23 23:59 23:59 23:59 Intake Total 2532.25 / 2532.25 Output Total 3190 / 3190 900 / 900 Balance -657.75 / -657.75 -900 / -900 Lab / Micro Data 10/01/23 10:15 Labs: Laboratory Results - last 24 hr 10/01/23 10:15: WBC 8.4, RBC 3.14 L, Hgb 9.7 L, Hct 29.1 L, MCV 92.7, MCH 30.9, MCHC 33.3, RDW Std Deviation 43.8, RDW Coeff of Marissa 12.9, Plt Count 206, MPV 10.9, Immature Gran % (Auto) 0.600, Neut % (Auto) 72.1 H, Lymph % (Auto) 19.9, [place] % (Auto) 5.8, Eos % (Auto) 1.2, Baso % (Auto) 0.4, Absolute Neuts (auto) 6.1, Absolute Lymphs (auto) 1.67, Nucleated RBC % 0 ROS Constitutional Constitutional: Reports systems reviewed and no addt'l complaints, except as documented Cardiovascular Cardiovascular: Reports systems reviewed and no addt'l complaints, except as documented Respiratory/Chest Respiratory/Chest: Reports systems reviewed and no addt'l complaints, except as documented Gastrointestinal Gastrointestinal: Reports systems reviewed and no addt'l complaints, except as documented Physical Exam Const alert, oriented x3 and no apparent distress Resp normal respiratory effort GI soft to palpation and non-tender Inspection: incision intact, healing well and drainage (none) Bimanual Exam - Vag & Uterus: uterus non-tender Uterus Palpation: uterus fundus firm (below Umbilicus) Assessment & Plan (1) delivery delivered: COMMENT: RLTCS 39 girl, third cs (2) Anxiety: COMMENT: zoloft start PLAN: Plan s/p LTCS PPD # 2 1. routine post care 2. breast feeding- support given 3. rh positive 4. rubella immune
[2023-10-02 08:00] VITALS: BP 118/66; PULSE 88; RESP 14; TEMP 36.4; O2SAT 96
[2023-10-02] MEDS: Naproxen 500 MG Tablet PO (08:13)
[2023-10-02] MEDS: Senna/Docusate Sodium 1 Tablet PO (08:14)
[2023-10-02] MEDS: Enoxaparin 40 MG/0.4 ML Syringe SC (08:14)
== END 2023-10-02 12:00 | disposition home or self-care (01) | DRG 788 ==
PROVIDERS: Admitting Provider Obstetrics & Gynecology; PCP Nurse Practitioner Primary Care; Visit Provider Obstetrics & Gynecology
PROC: 10D00Z1 Extraction of Products of Conception, Low, Open Approach (ICD-10-PCS; CPT 59514; principal; 2023-09-30 07:00)
DX: O34.219 Maternal care for unspecified type scar from previous cesarean delivery (principal); O99.214 Obesity complicating childbirth; E06.3 Autoimmune thyroiditis; E28.2 Polycystic ovarian syndrome; F41.9 Anxiety disorder, unspecified; O99.824 Streptococcus B carrier state complicating childbirth; O99.344 Other mental disorders complicating childbirth; O99.284 Endocrine, nutritional and metabolic diseases complicating childbirth; Z37.0 Single live birth; Z3A.38 38 weeks gestation of pregnancy
CPT/HCPCS: 59025; 59050; 85025; 85027; 86780; 86850; 86900; 86901; 99221; J7120; A4216; G0378